=== PATIENT | male | born 1960 | race Caucasian/White ===

== ENCOUNTER 2017-07-08 06:03 | Inpatient (IN) | payer MEDICARE, MEDICAID ==
[2017-07-07 15:46] LABS: BASOPHILS % (AUTO) 0.4 % (0-1); EOSINOPHILS # (AUTO) 0.2 X10'3 (0-0.9); EOSINOPHILS % (AUTO) 2.8 % (0-6); LYMPHOCYTES # (AUTO) 0.9 X10'3 (1.1-4.8); LYMPHOCYTES % (AUTO) 11.4 % (21-51); MEAN CORPUSCULAR HEMOGLOBIN 23.8 PG (27.0-31.0); MEAN CORPUSCULAR HGB CONC 32.8 % (33.0-36.5); MEAN CORPUSCULAR VOLUME 72.7 FL (78-98); MEAN PLATELET VOLUME 7.3 FL (7.4-10.4); MONOCYTES # (AUTO) 0.7 X10'3 (0-0.9); MONOCYTES % (AUTO) 8.7 % (2-12); NEUTROPHILS # (AUTO) 5.8 X10'3 (1.8-7.7); NEUTROPHILS % (AUTO) 76.7 % (42-75); PRE OP HEMATOCRIT 39.7 % (42.0-52.0); PRE OP PLATELET COUNT 326 X10'3 (140-440); RED BLOOD COUNT 5.46 X10'6 (4.70-6.10); RED CELL DISTRIBUTION WIDTH 18.7 % (11.5-14.5)
[2017-07-07 15:48] LABS: CLARITY,URINE SLIGHTLY CLOUDY (Clear); COLOR,URINE YELLOW (Yellow); GLUCOSE, URINE NEGATIVE (Neg); KETONES,URINE TRACE mg/dl (Neg); LEUKOCYTE ESTERASE ,URINE NEGATIVE (Neg); NITRITES, URINE NEGATIVE (Neg); OCCULT BLOOD,URINE NEGATIVE (Neg); PROTEIN,URINE TRACE mg/dl (Neg)
[2017-07-07 15:51] LABS: UA COLLECTION TYPE VOIDED
[2017-07-07 15:57] LABS: PRE OP INR 1.4 INR; PRE OP PROTIME 14.3 SECONDS (9.0-12.0)
[2017-07-07 16:00] LABS: ALBUMIN 3.4 G/DL (3.4-5.0); ALBUMIN/GLOBULIN RATIO 0.8 (1.1-1.5); ALKALINE PHOSPHATASE 122 IU/L (46-116); BLOOD UREA NITROGEN 14 MG/DL (7-18); BUN/CREATININE RATIO 14.3 (5.4-32.0); CHLORIDE 102 MMOL/L (99-107); CREATININE 0.98 MG/DL (0.60-1.10); PRE OP ALT 35 U/L (30-65); PRE OP ANION GAP 5 (8-16); PRE OP AST 23 U/L (10-37); PRE OP BILIRUB, TOTAL 0.7 MG/DL (0.0-1.0); PRE OP GLUCOSE 194 MG/DL (70-104); PRE OP SODIUM 139 MMOL/L (135-145); TOTAL CARBON DIOXIDE 31.6 MMOL/L (24-32); TOTAL PROTEIN 7.9 G/DL (6.4-8.2); eGFR 79 ML/MIN
[2017-07-07 16:03] LABS: BACTERIA,URINE NONE SEEN /HPF (Neg); RBC,URINE 0-2 /HPF (0-2); SQUAMOUS EPITHELIAL CELL,UR FEW /LPF (FEW); WBC,URINE 0-4 /HPF (0-4)
[2017-07-08] VITALS (24 sets, daily range): BP systolic 81–145; BP diastolic 51–99
[~2017-07-08] VITALS: Ht 182.9 cm; Wt 189.6 kg
[~2017-07-08 06:03] MED LIST: ASPI-845 PO; BACL10TA PO; DICL100G15 TOP; DIGO250T77 PO; DOCUMENT DATE & TIME OF BETA-BLOCKER PO ONE; ENAL20TA75 PO; FURO40TA4 PO; GABA-532 PO; GLIP5TAB13 PO; INSU100C4 SQ; INSU100V12 SQ; LEVO50TA8 PO; LIRA0.6P2 SQ; OMEP20CA10 PO; POTA8TAB8 PO; ROSU20TA PO; SITA100T11 PO; SUCR1TAB PO; WARF-55 PO; ceFAZolin inj. 3,000 MG in normal saline 100ml IV soln 100 ML IV ONE; famotidine 20mg tablet PO ONE; ringers solution, lacted 1,000 ML IV SCH
[2017-07-08] MEDS ORDERED: LIDOcaine 1% (10mg/ml) 2ml vial ONE (06:29)
[2017-07-08] MEDS ORDERED: ceFAZolin 1000mg inj ONE ×2 (07:10→10:53)
[2017-07-08] MEDS ORDERED: BUPIVAcaine/PF 2.5 mg/ml (0.25%) 30ml vial ONE (07:11)
[2017-07-08] MEDS ORDERED: fentaNYL /PF 50mcg/ml 5ml ampule ONE (08:06)
[2017-07-08] MEDS ORDERED: midazolam 2 mg/2 ml injection ONE ×2 (08:06→10:31)
[2017-07-08] MEDS ORDERED: propofol inj 40 ML IV ONE (08:19)
[2017-07-08] MEDS ORDERED: LIDOcaine 1%/PF (10mg/ml) 5ml vial ONE (08:20)
[2017-07-08] MEDS ORDERED: rocuronium 10mg/ml inj IV ONE ×3 (08:22→13:07)
[2017-07-08] MEDS ORDERED: succinylcholine 20mg/ml inj IV ONE (08:22)
[2017-07-08] MEDS ORDERED: ringers solution, lacted 1,000 ML IV SCH (08:58)
[2017-07-08] MEDS ORDERED: HYDROmorphone inj. 0.5 MG/0.5 ML DISP.SYRIN IV PRN ×2 (09:00)
[2017-07-08] MEDS ORDERED: meperidine/PF 50mg/ml syringe IV PRN ×2 (09:00)
[2017-07-08] MEDS ORDERED: proCHLORperazine 10 MG/2 ml inj IV PRN (09:00)
[2017-07-08] MEDS ORDERED: fentaNYL/PF 50MCG/1 ML 2ML syringe IV PRN (09:00)
[2017-07-08] MEDS ORDERED: ondansetron/PF 4mg/2ml inj IV PRN (09:00)
[2017-07-08] MEDS ORDERED: sevoflurane 250ml liquid IH ONE (09:30)
[2017-07-08] MEDS ORDERED: ondansetron/PF 4mg/2ml inj ONE (10:40)
[2017-07-08] MEDS ORDERED: metoclopramide 5 mg/ml inj ONE (10:40)
[2017-07-08] MEDS ORDERED: epiNEPHrine 0.1mg/ml 10ml syringe ONE (11:00)
[2017-07-08] MEDS ORDERED: LIDOcaine 2% (20mg/ml) 5ml vial ONE (11:02)
[2017-07-08] MEDS ORDERED: ketorolac trometh. 30mg/ml inj. ONE (11:08)
[2017-07-08] MEDS ORDERED: dextrose 50%-water 50ml dispensing syringe IV PRN ×2 (11:30)
[2017-07-08] MEDS ORDERED: HYDROcodone/acetaminophen 10/325mg tab PO PRN (11:30)
[2017-07-08] MEDS ORDERED: glucagon, human recombinant 1mg kit SUBCUT PRN (11:30)
[2017-07-08] MEDS ORDERED: dextrose ORAL solution 15 GM/59 ML bottle PO PRN ×2 (11:30)
[2017-07-08] MEDS ORDERED: MESSAGE TO PHARMACY PO ONE (11:30)
[2017-07-08] MEDS: fentaNYL/PF 50MCG/1 ML 2ML syringe IV PRN ×2 (11:33→11:41)
[2017-07-08] MEDS ORDERED: insulin regular, human 10 units/0.1 ml syringe IV ONE (11:45)
[2017-07-08] MEDS ORDERED: acetaminophen 1,000mg/100ml IV 100 ML IV ONE (11:45)
[2017-07-08] MEDS ORDERED: insulin regular, human 10 units/0.1 ml syringe ONE (11:50)
[2017-07-08] MEDS ORDERED: HYDROmorphone/NS 1 mg/ml CADD 50 ML IV SCH (12:00)
[2017-07-08] MEDS ORDERED: CADD PCA waste documentation MC SCH (12:10)
[2017-07-08] MEDS: HYDROmorphone/NS 1 mg/ml CADD 50 ML IV SCH ×6 (12:27→23:00)
[2017-07-08] MEDS ORDERED: baclofen 10mg tablet PO PRN (13:00)
[2017-07-08] MEDS ORDERED: glycopyrrolate 0.2mg/ml inj ONE (13:02)
[2017-07-08] MEDS ORDERED: neostigmine methylsulfate 1 MG/ML 10ml vial ONE (13:02)
[2017-07-08] MEDS: furosemide 40mg tablet PO SCH ×2 (13:27→19:45)
[2017-07-08] MEDS: ondansetron/PF 4mg/2ml inj IV PRN (13:27)
[2017-07-08] MEDS: DICLOFENAC SODIUM TOP SCH ×2 (13:29→20:00)
[2017-07-08 13:31] LABS: INR 1.3 INR; PROTHROMBIN TIME 13.3 SECONDS (9.0-12.0)
[2017-07-08] MEDS ORDERED: ketorolac tromethamine 15mg/ml inj. IV ONE (15:50)
[2017-07-08] MEDS: Potassium Cl inj 20 MEQ in ringers solution, lacted 1,000 ML IV SCH (16:03)
[2017-07-08] MEDS: sucralfate 1 gm tablet PO SCH ×2 (17:58→23:56)
[2017-07-08] MEDS ORDERED: proMETHazine 25mg tablet PO PRN (18:10)
[2017-07-08] MEDS: insulin Lispro (HumaLOG) vial - multi-dose SQ SCH (19:42)
[2017-07-08] MEDS: gabapentin 300mg capsule PO SCH (19:45)
[2017-07-08] MEDS: potassium chloride 8mEq ER tablet PO SCH (19:45)
[2017-07-08] MEDS ORDERED: enoxaparin 50mg/0.5ml (from 3ml vial) syringe SUBCUT SCH (20:00)
[2017-07-08] MEDS ORDERED: glipizide 5mg tablet PO SCH (20:00)
[2017-07-08] MEDS: insulin glargine (Lantus) pen - multi-dose SQ SCH (21:07)
[2017-07-09] VITALS (23 sets, daily range): BP systolic 81–115; BP diastolic 45–78
[2017-07-09] MEDS: HYDROmorphone/NS 1 mg/ml CADD 50 ML IV SCH ×12 (01:00→23:00)
[2017-07-09] MEDS: DICLOFENAC SODIUM TOP SCH ×4 (02:00→20:00)
[2017-07-09] MEDS ORDERED: LORazepam 2 mg/ml vial IV ONE (02:05)
[2017-07-09] MEDS ORDERED: LORazepam 2 mg/ml vial ONE (02:07)
[2017-07-09] MEDS: Potassium Cl inj 20 MEQ in ringers solution, lacted 1,000 ML IV SCH ×2 (02:37→09:53)
[2017-07-09 05:37] LABS: BASOPHILS % (AUTO) 0.4 % (0-1); EOSINOPHILS # (AUTO) 0.3 X10'3 (0-0.9); LYMPHOCYTES # (AUTO) 0.4 X10'3 (1.1-4.8); MEAN CORPUSCULAR HEMOGLOBIN 23.9 PG (27.0-31.0); MEAN CORPUSCULAR HGB CONC 32.5 % (33.0-36.5); MEAN CORPUSCULAR VOLUME 73.4 FL (78-98); MONOCYTES # (AUTO) 0.6 X10'3 (0-0.9); MONOCYTES % (AUTO) 7.2 % (2-12); NEUTROPHILS # (AUTO) 7.2 X10'3 (1.8-7.7); NEUTROPHILS % (AUTO) 84.4 % (42-75); PLATELET COUNT 333 X10'3 (140-440); RED BLOOD COUNT 5.85 X10'6 (4.70-6.10); RED CELL DISTRIBUTION WIDTH 19.1 % (11.5-14.5); WHITE BLOOD COUNT 8.6 X10'3 (4.5-11.0)
[2017-07-09 05:46] LABS: INR 1.3 INR; PROTHROMBIN TIME 13.1 SECONDS (9.0-12.0)
[2017-07-09] MEDS ORDERED: pantoprazole 40mg Tablet.DR PO SCH (07:30)
[2017-07-09 07:59] LABS: ALBUMIN 2.9 G/DL (3.4-5.0); ANION GAP 8 (8-16); BLOOD UREA NITROGEN 25 MG/DL (7-18); BUN/CREATININE RATIO 21.9 (5.4-32.0); CALCIUM 8.1 MG/DL (8.5-10.1); CHLORIDE 104 MMOL/L (99-107); CREATININE 1.14 MG/DL (0.60-1.10); GLUCOSE 269 MG/DL (70-104); SODIUM 140 MMOL/L (135-145); TOTAL CARBON DIOXIDE 28.5 MMOL/L (24-32); eGFR 66 ML/MIN
[2017-07-09] MEDS ORDERED: digoxin 250mcg (0.25mg) tablet PO SCH (08:00)
[2017-07-09] MEDS ORDERED: INSULIN DETEMIR 160 UNIT SQ SCH (08:00)
[2017-07-09] MEDS: atorvastatin 20mg tablet PO SCH (08:46)
[2017-07-09] MEDS: aspirin 325mg tablet, delayed-release (Ecotrin) PO SCH (08:46)
[2017-07-09] MEDS: gabapentin 300mg capsule PO SCH ×2 (08:46→21:16)
[2017-07-09] MEDS: digoxin 125mcg (0.125mg) tablet PO SCH (08:47)
[2017-07-09] MEDS: sucralfate 1 gm tablet PO SCH ×2 (08:48→15:44)
[2017-07-09] MEDS: ondansetron/PF 4mg/2ml inj IV PRN ×2 (08:51→16:14)
[2017-07-09] MEDS: insulin Lispro (HumaLOG) vial - multi-dose SQ SCH ×3 (09:04→21:28)
[2017-07-09] MEDS: levoTHYROXINE 25mcg tablet PO SCH (09:05)
[2017-07-09] MEDS: lisinopril 2.5mg tablet PO SCH (09:06)
[2017-07-09] MEDS: potassium chloride 8mEq ER tablet PO SCH ×2 (09:51→20:00)
[2017-07-09] MEDS: furosemide 40mg tablet PO SCH ×3 (09:53→21:00)
[2017-07-09] MEDS: LIRAGLUTIDE 0.6 MG SQ SCH (09:53)
[2017-07-09 10:35] LABS: PHOSPHORUS 3.9 MG/DL (2.3-4.5)
[2017-07-09] MEDS: enoxaparin 30mg/0.3ml syringe SUBCUT SCH (14:27)
[2017-07-09] MEDS ORDERED: albumin (human) 25% 100 ML IV solution IV ONE (15:35)
[2017-07-09 16:10] LABS: MAGNESIUM 1.8 MG/DL (1.5-2.4); POTASSIUM 5.1 MMOL/L (3.5-5.1)
[2017-07-09] MEDS: warfarin 7.5mg tablet PO SCH (21:17)
[2017-07-09] MEDS: insulin glargine (Lantus) pen - multi-dose SQ SCH (21:25)
[2017-07-09] MEDS: normal saline 1000ml 1,000 ML IV SCH (22:20)
[2017-07-10] VITALS (23 sets, daily range): BP systolic 83–129; BP diastolic 51–85
[2017-07-10] MEDS: sucralfate 1 gm tablet PO SCH ×3 (00:53→14:59)
[2017-07-10] MEDS: HYDROmorphone/NS 1 mg/ml CADD 50 ML IV SCH ×12 (01:00→23:00)
[2017-07-10] MEDS: DICLOFENAC SODIUM TOP SCH ×4 (01:24→19:42)
[2017-07-10] MEDS: normal saline 1000ml 1,000 ML IV SCH ×4 (05:25→23:03)
[2017-07-10 05:35] LABS: BASOPHILS % (AUTO) 0.2 % (0-1); EOSINOPHILS # (AUTO) 0.1 X10'3 (0-0.9); EOSINOPHILS % (AUTO) 1.1 % (0-6); HEMATOCRIT 37.9 % (42.0-52.0); HEMOGLOBIN 12.4 g/dl (14.0-17.9); LYMPHOCYTES # (AUTO) 0.5 X10'3 (1.1-4.8); MEAN CORPUSCULAR HEMOGLOBIN 24.1 PG (27.0-31.0); MEAN CORPUSCULAR HGB CONC 32.9 % (33.0-36.5); MEAN CORPUSCULAR VOLUME 73.4 FL (78-98); MEAN PLATELET VOLUME 8.3 FL (7.4-10.4); MONOCYTES % (AUTO) 9.8 % (2-12); NEUTROPHILS # (AUTO) 8.8 X10'3 (1.8-7.7); NEUTROPHILS % (AUTO) 83.9 % (42-75); PLATELET COUNT 285 X10'3 (140-440); RED BLOOD COUNT 5.16 X10'6 (4.70-6.10); RED CELL DISTRIBUTION WIDTH 18.8 % (11.5-14.5); WHITE BLOOD COUNT 10.5 X10'3 (4.5-11.0)
[2017-07-10 05:51] LABS: INR 1.2 INR; PROTHROMBIN TIME 12.7 SECONDS (9.0-12.0)
[2017-07-10 06:37] LABS: ALANINE AMINOTRANSFERASE 21 U/L (12-78); ALBUMIN 2.8 G/DL (3.4-5.0); ALBUMIN/GLOBULIN RATIO 0.7 (1.1-1.5); ALKALINE PHOSPHATASE 77 IU/L (46-116); ANION GAP 8 (8-16); ASPARTATE AMINO TRANSFERASE 24 U/L (10-37); BILIRUBIN,TOTAL 2.8 MG/DL (0.1-1.0); BLOOD UREA NITROGEN 39 MG/DL (7-18); BUN/CREATININE RATIO 26.2 (5.4-32.0); CALCIUM 8.5 MG/DL (8.5-10.1); CHLORIDE 102 MMOL/L (99-107); CREATININE 1.49 MG/DL (0.60-1.10); GLUCOSE 267 MG/DL (70-104); POTASSIUM 4.5 MMOL/L (3.5-5.1); SODIUM 139 MMOL/L (135-145); TOTAL CARBON DIOXIDE 29.1 MMOL/L (24-32); TOTAL PROTEIN 6.8 G/DL (6.4-8.2); eGFR 48 ML/MIN
[2017-07-10] MEDS: digoxin 125mcg (0.125mg) tablet PO SCH (08:00)
[2017-07-10] MEDS: aspirin 325mg tablet, delayed-release (Ecotrin) PO SCH (08:00)
[2017-07-10] MEDS: furosemide 40mg tablet PO SCH ×3 (08:00→20:49)
[2017-07-10] MEDS: gabapentin 300mg capsule PO SCH ×2 (08:00→19:40)
[2017-07-10] MEDS: potassium chloride 8mEq ER tablet PO SCH ×2 (08:00→19:42)
[2017-07-10] MEDS: lisinopril 2.5mg tablet PO SCH (08:00)
[2017-07-10] MEDS: atorvastatin 20mg tablet PO SCH (08:00)
[2017-07-10] MEDS: LIRAGLUTIDE 0.6 MG SQ SCH (08:00)
[2017-07-10] MEDS: enoxaparin 30mg/0.3ml syringe SUBCUT SCH ×2 (09:38→19:41)
[2017-07-10] MEDS: insulin Lispro (HumaLOG) vial - multi-dose SQ SCH ×3 (09:40→21:01)
[2017-07-10] MEDS: levoTHYROXINE 25mcg tablet PO SCH (11:20)
[2017-07-10] MEDS: metoclopramide 5 mg/ml inj IV SCH ×2 (11:59→19:40)
[2017-07-10] MEDS: methylnaltrexone br 12mg/0.6ml inj***SubQ only SQ SCH (11:59)
[2017-07-10] MEDS: digoxin 250mcg/ml 2ml ampule IV SCH (12:00)
[2017-07-10] MEDS: levoTHYROXINE sod inj. 100mcg/5 ml vial IV SCH (12:06)
[2017-07-10] MEDS: acetaminophen 650mg rectal suppository RC PRN (13:25)
[2017-07-10] MEDS: piperacillin/tazo 3.375gm/50ml 50 ML IV SCH (18:49)
[2017-07-10] MEDS ORDERED: albumin (Human) 5% 250 ML IV solution IV STA (19:10)
[2017-07-10] MEDS: warfarin 7.5mg tablet PO SCH (20:49)
[2017-07-10] MEDS: insulin glargine (Lantus) pen - multi-dose SQ SCH (20:59)
[2017-07-10] MEDS: ondansetron/PF 4mg/2ml inj IV PRN (23:09)
[2017-07-11] VITALS (23 sets, daily range): BP systolic 85–140; BP diastolic 46–84
[2017-07-11] MEDS: piperacillin/tazo 3.375gm/50ml 50 ML IV SCH ×3 (00:07→15:19)
[2017-07-11] MEDS: sucralfate 1 gm tablet PO SCH ×3 (00:07→16:00)
[2017-07-11] MEDS: HYDROmorphone/NS 1 mg/ml CADD 50 ML IV SCH ×11 (01:00→23:00)
[2017-07-11] MEDS: DICLOFENAC SODIUM TOP SCH ×4 (01:23→20:00)
[2017-07-11] MEDS: metoclopramide 5 mg/ml inj IV SCH ×4 (01:32→20:00)
[2017-07-11] MEDS: normal saline 1000ml 1,000 ML IV SCH ×3 (05:18→22:00)
[2017-07-11 05:28] LABS: INR 1.2 INR
[2017-07-11 05:36] LABS: BASOPHILS % (AUTO) 0.1 % (0-1); EOSINOPHILS # (AUTO) 0.2 X10'3 (0-0.9); EOSINOPHILS % (AUTO) 1.7 % (0-6); HEMATOCRIT 28.6 % (42.0-52.0); HEMOGLOBIN 9.2 g/dl (14.0-17.9); LYMPHOCYTES # (AUTO) 0.4 X10'3 (1.1-4.8); LYMPHOCYTES % (AUTO) 3.4 % (21-51); MEAN CORPUSCULAR HGB CONC 32.4 % (33.0-36.5); MEAN CORPUSCULAR VOLUME 74.2 FL (78-98); MEAN PLATELET VOLUME 8.6 FL (7.4-10.4); MONOCYTES # (AUTO) 1.2 X10'3 (0-0.9); MONOCYTES % (AUTO) 10.1 % (2-12); NEUTROPHILS # (AUTO) 9.9 X10'3 (1.8-7.7); NEUTROPHILS % (AUTO) 84.7 % (42-75); PLATELET COUNT 248 X10'3 (140-440); RED BLOOD COUNT 3.85 X10'6 (4.70-6.10); RED CELL DISTRIBUTION WIDTH 19.2 % (11.5-14.5); WHITE BLOOD COUNT 11.6 X10'3 (4.5-11.0)
[2017-07-11 05:51] LABS: ALANINE AMINOTRANSFERASE 20 U/L (12-78); ALBUMIN 2.5 G/DL (3.4-5.0); ALKALINE PHOSPHATASE 78 IU/L (46-116); ANION GAP 9 (8-16); ASPARTATE AMINO TRANSFERASE 36 U/L (10-37); BILIRUBIN,TOTAL 4.3 MG/DL (0.1-1.0); BLOOD UREA NITROGEN 50 MG/DL (7-18); BUN/CREATININE RATIO 30.9 (5.4-32.0); CALCIUM 8.2 MG/DL (8.5-10.1); CHLORIDE 104 MMOL/L (99-107); CREATININE 1.62 MG/DL (0.60-1.10); GLUCOSE 317 MG/DL (70-104); MAGNESIUM 2.1 MG/DL (1.5-2.4); SODIUM 142 MMOL/L (135-145); TOTAL CARBON DIOXIDE 29.2 MMOL/L (24-32); eGFR 44 ML/MIN
[2017-07-11 05:54] LABS: ALBUMIN/GLOBULIN RATIO 0.6 (1.1-1.5); POTASSIUM 4.6 MMOL/L (3.5-5.1); TOTAL PROTEIN 6.4 G/DL (6.4-8.2)
[2017-07-11 05:56] LABS: ANISOCYTOSIS 2+; ELLIPTOCYTES FEW; HYPOCHROMASIA 1+; PLATELET ESTIMATE NORMAL; POLYCHROMASIA FEW; TOTAL CELLS COUNTED 100
[2017-07-11] MEDS ORDERED: amiodarone 150mg/dext, iso-os 100 ML IV ONE (06:45)
[2017-07-11] MEDS: amiodarone/D5 360MG/200ML BAG 200 ML IV SCH ×3 (06:58→18:52)
[2017-07-11 07:11] LABS: ABG BASE EXCESS -0.2 mmol/L (-2.0-3.0); ABG HCO3 25.3 mmol/L (22.0-26.0); ABG OXYGEN SATURATION 94.4 % (95-98); ABG PCO2 (T) 47.6 mmHg (35.0-48.0); ABG PH (T) 7.349 (7.350-7.450); ABG PO2 (T) 83.4 mmHg (83-108); ALLEN'S TEST Positive; FCOHb 1.5 % (0.5-1.5); FLOW 4 L/min; FMetHb 0.2 % (0.3-1.12); FO2Hb 92.8 % (94-100); PATIENT TEMPERATURE 38.5; TOTAL HEMOGLOBIN 10.2 G/dl (14.0-18.0)
[2017-07-11] MEDS: potassium chloride 8mEq ER tablet PO SCH ×2 (08:00→20:00)
[2017-07-11] MEDS: lisinopril 2.5mg tablet PO SCH (08:00)
[2017-07-11] MEDS: atorvastatin 20mg tablet PO SCH (08:00)
[2017-07-11] MEDS: LIRAGLUTIDE 0.6 MG SQ SCH (08:00)
[2017-07-11] MEDS: enoxaparin 30mg/0.3ml syringe SUBCUT SCH ×2 (08:00→22:23)
[2017-07-11] MEDS: gabapentin 300mg capsule PO SCH ×2 (08:00→20:00)
[2017-07-11] MEDS: aspirin 325mg tablet, delayed-release (Ecotrin) PO SCH (08:00)
[2017-07-11] MEDS: furosemide 40mg tablet PO SCH (08:00)
[2017-07-11] MEDS: levoTHYROXINE sod inj. 100mcg/5 ml vial IV SCH (08:39)
[2017-07-11] MEDS: digoxin 250mcg/ml 2ml ampule IV SCH (08:39)
[2017-07-11] MEDS: insulin Lispro (HumaLOG) vial - multi-dose SQ SCH ×2 (08:58→14:52)
[2017-07-11] MEDS: acetaminophen 650mg rectal suppository RC PRN (10:08)
[2017-07-11] MEDS ORDERED: LIDOcaine 1% (10mg/ml) 2ml vial ONE (15:29)
[2017-07-11] MEDS ORDERED: clindamycin phosphate 150mg/ml inj. ONE (15:29)
[2017-07-11] MEDS ORDERED: gentamicin 40 MG/1 ML inj ONE (15:29)
[2017-07-11] MEDS ORDERED: desflurane 240ml liquid inh. IH ONE (15:35)
[2017-07-11] MEDS ORDERED: ePHEDrine 50MG/ML INJ. ONE ×2 (15:35→17:49)
[2017-07-11] MEDS ORDERED: adenosine 3mg/ml 2ml vial IV ONE (15:35)
[2017-07-11] MEDS ORDERED: insulin Lispro (HumaLOG) vial - multi-dose SQ PRN (15:45)
[2017-07-11] MEDS ORDERED: dextrose 50%-water 50ml dispensing syringe IV PRN (15:45)
[2017-07-11] MEDS: insulin regular, human 100 UNITS in normal saline 100ml IV soln 99 ML IV SCH ×4 (16:05→23:11)
[2017-07-11 16:56] LABS: ABG BASE EXCESS -5.9 mmol/L (-2.0-3.0); ABG HCO3 22.2 mmol/L (22.0-26.0); ABG OXYGEN SATURATION 86.6 % (95-98); ABG PCO2 (T) 58.3 mmHg (35.0-48.0); ABG PH (T) 7.199 (7.350-7.450); FMetHb 0.2 % (0.3-1.12); FO2Hb 85.6 % (94-100); TOTAL HEMOGLOBIN 9.3 G/dl (14.0-18.0)
[2017-07-11] MEDS ORDERED: EPICAL 5MG & 1000MG PER 250ML INFUSION IV PRN ×3 (17:00)
[2017-07-11 17:03] LABS: BASOPHILS % (AUTO) 0.1 % (0-1); EOSINOPHILS # (AUTO) 0.5 X10'3 (0-0.9); EOSINOPHILS % (AUTO) 2.1 % (0-6); HEMATOCRIT 26.9 % (42.0-52.0); HEMOGLOBIN 8.5 g/dl (14.0-17.9); LYMPHOCYTES # (AUTO) 2.7 X10'3 (1.1-4.8); LYMPHOCYTES % (AUTO) 11.7 % (21-51); MEAN CORPUSCULAR HEMOGLOBIN 23.7 PG (27.0-31.0); MEAN CORPUSCULAR HGB CONC 31.7 % (33.0-36.5); MEAN CORPUSCULAR VOLUME 74.9 FL (78-98); MEAN PLATELET VOLUME 8.9 FL (7.4-10.4); MONOCYTES # (AUTO) 2.8 X10'3 (0-0.9); MONOCYTES % (AUTO) 12.3 % (2-12); NEUTROPHILS # (AUTO) 16.9 X10'3 (1.8-7.7); NEUTROPHILS % (AUTO) 73.8 % (42-75); PLATELET COUNT 319 X10'3 (140-440); RED BLOOD COUNT 3.59 X10'6 (4.70-6.10); RED CELL DISTRIBUTION WIDTH 19.1 % (11.5-14.5); WHITE BLOOD COUNT 22.9 X10'3 (4.5-11.0)
[2017-07-11 17:15] LABS: INR 1.2 INR; PARTIAL THROMBOPLASTIN TIME 35 SECONDS (22-32); PROTHROMBIN TIME 12.1 SECONDS (9.0-12.0)
[2017-07-11 17:20] LABS: ANISOCYTOSIS 2+; NUCLEATED RED BLOOD CELLS 1 /100WBC (0-0); PLATELET ESTIMATE NORMAL; POLYCHROMASIA 1+; TOTAL CELLS COUNTED 100; TOXIC GRANULATION 1+
[2017-07-11 17:21] LABS: ELLIPTOCYTES 1+; HYPOCHROMASIA 1+; MICROCYTOSIS 1+
[2017-07-11 17:23] LABS: ALANINE AMINOTRANSFERASE 25 U/L (12-78); ALBUMIN 2.3 G/DL (3.4-5.0); ALBUMIN/GLOBULIN RATIO 0.6 (1.1-1.5); ALKALINE PHOSPHATASE 77 IU/L (46-116); ANION GAP 12 (8-16); ASPARTATE AMINO TRANSFERASE 50 U/L (10-37); BILIRUBIN,TOTAL 3.7 MG/DL (0.1-1.0); BLOOD UREA NITROGEN 58 MG/DL (7-18); BUN/CREATININE RATIO 24.7 (5.4-32.0); CALCIUM 8.7 MG/DL (8.5-10.1); CHLORIDE 104 MMOL/L (99-107); CREATININE 2.35 MG/DL (0.60-1.10); GLUCOSE 405 MG/DL (70-104); MAGNESIUM 3.1 MG/DL (1.5-2.4); SODIUM 142 MMOL/L (135-145); TOTAL CARBON DIOXIDE 26.5 MMOL/L (24-32); TOTAL PROTEIN 6.2 G/DL (6.4-8.2); TROPONIN I < 0.04 NG/ML (0.0-0.05); eGFR 29 ML/MIN
[2017-07-11 17:34] LABS: POTASSIUM 6.1 MMOL/L (3.5-5.1)
[2017-07-11 17:35] LABS: ABG HCO3 23.4 mmol/L (22.0-26.0); ABG OXYGEN SATURATION 98.8 % (95-98); ABG PCO2 (T) 39.7 mmHg (35.0-48.0); ABG PH (T) 7.394 (7.350-7.450); ABG PO2 (T) 163.1 mmHg (83-108); FCOHb 1.4 % (0.5-1.5); FMetHb 0.2 % (0.3-1.12); FO2Hb 97.2 % (94-100); PATIENT TEMPERATURE 38.6; TOTAL HEMOGLOBIN 8.1 G/dl (14.0-18.0)
[2017-07-11 17:36] LABS: LACTIC SEPSIS 6.7 MMOL/L (0.4-2.0)
[2017-07-11] MEDS ORDERED: midazolam 2 mg/2 ml injection IV PRN (17:40)
[2017-07-11] MEDS ORDERED: fentaNYL/PF 50MCG/1 ML 2ML syringe IV PRN ×2 (17:40→18:15)
[2017-07-11] MEDS ORDERED: rocuronium 10mg/ml inj IV ONE ×2 (17:48)
[2017-07-11] MEDS ORDERED: epiNEPHrine 0.1mg/ml 10ml syringe ONE (17:49)
[2017-07-11] MEDS ORDERED: etomidate 2mg/ml inj. ONE (17:49)
[2017-07-11] MEDS ORDERED: sodium bicarbonate 1 MEQ/1 ml inj ONE (17:49)
[2017-07-11] MEDS ORDERED: midazolam 2 mg/2 ml injection IV ONE (18:15)
[2017-07-11] MEDS: vasopressin inj. 60 UNIT in normal saline 100ml IV soln 97 ML IV SCH (19:30)
[2017-07-11 20:04] LABS: INR 1.2 INR; PARTIAL THROMBOPLASTIN TIME 36 SECONDS (22-32); PROTHROMBIN TIME 12.1 SECONDS (9.0-12.0)
[2017-07-11 20:06] LABS: ALANINE AMINOTRANSFERASE 26 U/L (12-78); ALBUMIN 2.2 G/DL (3.4-5.0); ALBUMIN/GLOBULIN RATIO 0.6 (1.1-1.5); ALKALINE PHOSPHATASE 72 IU/L (46-116); ANION GAP 7 (8-16); ASPARTATE AMINO TRANSFERASE 56 U/L (10-37); BILIRUBIN,TOTAL 4.2 MG/DL (0.1-1.0); BLOOD UREA NITROGEN 63 MG/DL (7-18); BUN/CREATININE RATIO 27.5 (5.4-32.0); CALCIUM 8.1 MG/DL (8.5-10.1); CHLORIDE 104 MMOL/L (99-107); CREATININE 2.29 MG/DL (0.60-1.10); GLUCOSE 331 MG/DL (70-104); MAGNESIUM 2.3 MG/DL (1.5-2.4); PHOSPHORUS 3.6 MG/DL (2.3-4.5); POTASSIUM 4.7 MMOL/L (3.5-5.1); SODIUM 138 MMOL/L (135-145); TOTAL CARBON DIOXIDE 27.5 MMOL/L (24-32); TOTAL PROTEIN 5.8 G/DL (6.4-8.2); eGFR 29 ML/MIN
[2017-07-11 21:00] LABS: ABG BASE EXCESS -0.5 mmol/L (-2.0-3.0); ABG HCO3 25.3 mmol/L (22.0-26.0); ABG OXYGEN SATURATION 98.6 % (95-98); ABG PCO2 (T) 50.9 mmHg (35.0-48.0); ABG PH (T) 7.324 (7.350-7.450); ABG PO2 (T) 171.1 mmHg (83-108); FCOHb 0.3 % (0.5-1.5); FMetHb 0.1 % (0.3-1.12); FO2Hb 98.2 % (94-100); PATIENT TEMPERATURE 39.1; PEEP 5 cm H2O; RESPIRATORY RATE 14 b/min; TIDAL VOLUME 600 mL
[2017-07-11] MEDS: insulin glargine (Lantus) pen - multi-dose SQ SCH (21:00)
[2017-07-11 21:11] LABS: OXYGEN SATURATION (MIXED VEN) 68.4 % (60-80); PO2 MIXED VENOUS (TEMP COR) 43.4 mmHg (35-46)
[2017-07-11 21:44] LABS: BASOPHILS % (AUTO) 0 % (0-1); EOSINOPHILS # (AUTO) 0.1 X10'3 (0-0.9); EOSINOPHILS % (AUTO) 0.4 % (0-6); HEMATOCRIT 26.6 % (42.0-52.0); HEMOGLOBIN 8.7 g/dl (14.0-17.9); LYMPHOCYTES # (AUTO) 0.3 X10'3 (1.1-4.8); MEAN CORPUSCULAR HEMOGLOBIN 24.5 PG (27.0-31.0); MEAN CORPUSCULAR HGB CONC 32.6 % (33.0-36.5); MONOCYTES # (AUTO) 1.7 X10'3 (0-0.9); MONOCYTES % (AUTO) 10.4 % (2-12); NEUTROPHILS # (AUTO) 13.9 X10'3 (1.8-7.7); NEUTROPHILS % (AUTO) 87.2 % (42-75); PLATELET COUNT 311 X10'3 (140-440); RED BLOOD COUNT 3.55 X10'6 (4.70-6.10); RED CELL DISTRIBUTION WIDTH 19.2 % (11.5-14.5)
[2017-07-11] MEDS: NORMAL SALINE IV SCH (22:21)
[2017-07-11] MEDS: NOREPINEPHRINE IV SCH (22:21)
[2017-07-11] MEDS: warfarin 7.5mg tablet PO SCH (22:28)
[2017-07-11 22:46] LABS: BASOPHILS % (AUTO) 0 % (0-1); EOSINOPHILS # (AUTO) 0.2 X10'3 (0-0.9); EOSINOPHILS % (AUTO) 1.1 % (0-6); HEMATOCRIT 28.8 % (42.0-52.0); HEMOGLOBIN 9.4 g/dl (14.0-17.9); LYMPHOCYTES # (AUTO) 0.4 X10'3 (1.1-4.8); MEAN CORPUSCULAR HEMOGLOBIN 24.8 PG (27.0-31.0); MEAN CORPUSCULAR HGB CONC 32.6 % (33.0-36.5); MEAN CORPUSCULAR VOLUME 76.1 FL (78-98); MEAN PLATELET VOLUME 8.7 FL (7.4-10.4); MONOCYTES # (AUTO) 1.3 X10'3 (0-0.9); MONOCYTES % (AUTO) 8.5 % (2-12); NEUTROPHILS # (AUTO) 12.9 X10'3 (1.8-7.7); NEUTROPHILS % (AUTO) 87.4 % (42-75); PLATELET COUNT 314 X10'3 (140-440); RED BLOOD COUNT 3.78 X10'6 (4.70-6.10); RED CELL DISTRIBUTION WIDTH 19.7 % (11.5-14.5); WHITE BLOOD COUNT 14.7 X10'3 (4.5-11.0)
[2017-07-12] VITALS (23 sets, daily range): BP systolic 95–129; BP diastolic 38–51
[2017-07-12] MEDS ORDERED: pantoprazole 40 MG vial IV ONE (00:15)
[2017-07-12] MEDS ORDERED: acetaminophen 1,000mg/100ml IV 100 ML IV SCH (00:35)
[2017-07-12] MEDS: piperacillin/tazo 3.375gm/50ml 50 ML IV SCH ×3 (00:41→16:15)
[2017-07-12] MEDS: sucralfate 1gm/10ml UD suspension PO SCH ×3 (00:41→16:00)
[2017-07-12] MEDS: HYDROmorphone/NS 1 mg/ml CADD 50 ML IV SCH ×5 (01:00→07:00)
[2017-07-12] MEDS: insulin regular, human 100 UNITS in normal saline 100ml IV soln 99 ML IV SCH ×22 (01:12→21:09)
[2017-07-12] MEDS: metoclopramide 5 mg/ml inj IV SCH ×4 (02:00→20:35)
[2017-07-12] MEDS: DICLOFENAC SODIUM TOP SCH ×4 (02:00→20:00)
[2017-07-12] MEDS: normal saline 1000ml 1,000 ML IV SCH ×4 (02:35→21:52)
[2017-07-12 03:56] LABS: ABG BASE EXCESS 2.6 mmol/L (-2.0-3.0); ABG OXYGEN SATURATION 96.2 % (95-98); ABG PCO2 (T) 44.7 mmHg (35.0-48.0); ABG PH (T) 7.407 (7.350-7.450); ABG PO2 (T) 95.2 mmHg (83-108); FCOHb 0.3 % (0.5-1.5); FMetHb 0.1 % (0.3-1.12); FO2Hb 95.8 % (94-100); PEEP 5 cm H2O; RESPIRATORY RATE 18 b/min; TIDAL VOLUME 600 mL; TOTAL HEMOGLOBIN 9.9 G/dl (14.0-18.0)
[2017-07-12 04:20] LABS: BASOPHILS % (AUTO) 0 % (0-1); EOSINOPHILS # (AUTO) 0.6 X10'3 (0-0.9); EOSINOPHILS % (AUTO) 4.1 % (0-6); HEMATOCRIT 27.7 % (42.0-52.0); HEMOGLOBIN 9.1 g/dl (14.0-17.9); LYMPHOCYTES # (AUTO) 0.5 X10'3 (1.1-4.8); LYMPHOCYTES % (AUTO) 3.5 % (21-51); MEAN CORPUSCULAR HEMOGLOBIN 24.7 PG (27.0-31.0); MEAN CORPUSCULAR HGB CONC 32.7 % (33.0-36.5); MEAN CORPUSCULAR VOLUME 75.6 FL (78-98); MEAN PLATELET VOLUME 7.9 FL (7.4-10.4); MONOCYTES # (AUTO) 1.4 X10'3 (0-0.9); MONOCYTES % (AUTO) 9.3 % (2-12); NEUTROPHILS # (AUTO) 12.6 X10'3 (1.8-7.7); NEUTROPHILS % (AUTO) 83.1 % (42-75); PLATELET COUNT 277 X10'3 (140-440); RED BLOOD COUNT 3.67 X10'6 (4.70-6.10); RED CELL DISTRIBUTION WIDTH 19.7 % (11.5-14.5); WHITE BLOOD COUNT 15.2 X10'3 (4.5-11.0)
[2017-07-12 04:28] LABS: INR 1.2 INR; PROTHROMBIN TIME 11.9 SECONDS (9.0-12.0)
[2017-07-12 04:34] LABS: ALANINE AMINOTRANSFERASE 27 U/L (12-78); ALKALINE PHOSPHATASE 71 IU/L (46-116); ANION GAP 9 (8-16); ASPARTATE AMINO TRANSFERASE 69 U/L (10-37); BILIRUBIN,TOTAL 5.1 MG/DL (0.1-1.0); BLOOD UREA NITROGEN 67 MG/DL (7-18); BUN/CREATININE RATIO 24.5 (5.4-32.0); CALCIUM 7.9 MG/DL (8.5-10.1); CHLORIDE 109 MMOL/L (99-107); CREATININE 2.73 MG/DL (0.60-1.10); GLUCOSE 195 MG/DL (70-104); POTASSIUM 4.1 MMOL/L (3.5-5.1); SODIUM 146 MMOL/L (135-145); TOTAL CARBON DIOXIDE 28.2 MMOL/L (24-32); eGFR 24 ML/MIN
[2017-07-12 04:38] LABS: ALBUMIN/GLOBULIN RATIO 0.5 (1.1-1.5); TOTAL PROTEIN 5.8 G/DL (6.4-8.2)
[2017-07-12] MEDS: amiodarone/D5 360MG/200ML BAG 200 ML IV SCH ×4 (05:00→16:50)
[2017-07-12 05:20] LABS: ANISOCYTOSIS 2+; PLATELET ESTIMATE NORMAL; TOTAL CELLS COUNTED 100
[2017-07-12 05:21] LABS: ELLIPTOCYTES FEW; HYPOCHROMASIA 1+; MICROCYTOSIS 1+; POLYCHROMASIA 1+
[2017-07-12 08:00] LABS: MAGNESIUM 2.4 MG/DL (1.5-2.4); PHOSPHORUS 1.6 MG/DL (2.3-4.5)
[2017-07-12] MEDS: potassium chloride 8mEq ER tablet PO SCH ×2 (08:00→20:00)
[2017-07-12] MEDS: K and/or MAG REPLACEMENT MC SCH (08:00)
[2017-07-12] MEDS: LIRAGLUTIDE 0.6 MG SQ SCH (08:00)
[2017-07-12] MEDS: atorvastatin 20mg tablet PO SCH (08:00)
[2017-07-12] MEDS: lisinopril 2.5mg tablet PO SCH (08:00)
[2017-07-12] MEDS: aspirin 325mg tablet, delayed-release (Ecotrin) PO SCH (08:00)
[2017-07-12] MEDS: gabapentin 300mg capsule PO SCH ×2 (08:00→20:00)
[2017-07-12] MEDS: methylnaltrexone br 12mg/0.6ml inj***SubQ only SQ SCH (08:21)
[2017-07-12] MEDS ORDERED: sodium phosphate inj. 30 MMOL in dextrose 5%-water 250 ML IV PRN ×2 (08:22→08:45)
[2017-07-12] MEDS: pantoprazole 40 MG vial IV SCH (08:22)
[2017-07-12] MEDS ORDERED: sodium phosphate inj. 15 MMOL in dextrose 5%-water 150 ML IV PRN ×2 (08:22→08:50)
[2017-07-12] MEDS ORDERED: magnesium 4gm in 100ml NS 100 ML IV PRN (08:25)
[2017-07-12] MEDS ORDERED: magnesium 2GM in 50ml NS 50 ML IV PRN (08:25)
[2017-07-12] MEDS: digoxin 250mcg/ml 2ml ampule IV SCH (08:25)
[2017-07-12] MEDS ORDERED: potassium Cl 40MEQ/250ML bag 250 ML IV PRN (08:25)
[2017-07-12] MEDS: levoTHYROXINE sod inj. 100mcg/5 ml vial IV SCH (08:28)
[2017-07-12] MEDS: NORMAL SALINE IV SCH ×2 (08:39→18:20)
[2017-07-12] MEDS: NOREPINEPHRINE IV SCH ×2 (08:39→18:20)
[2017-07-12] MEDS: enoxaparin 30mg/0.3ml syringe SUBCUT SCH ×2 (08:45→20:35)
[2017-07-12] MEDS: FENTANYL-0.9 % NACL/PF 100 ML IV PRN (10:07)
[2017-07-12 15:26] LABS: HEMATOCRIT 27.8 % (42.0-52.0); MEAN CORPUSCULAR HEMOGLOBIN 24.7 PG (27.0-31.0); MEAN CORPUSCULAR HGB CONC 32.4 % (33.0-36.5); MEAN CORPUSCULAR VOLUME 76.1 FL (78-98); MEAN PLATELET VOLUME 8.2 FL (7.4-10.4); PLATELET COUNT 260 X10'3 (140-440); RED BLOOD COUNT 3.65 X10'6 (4.70-6.10); RED CELL DISTRIBUTION WIDTH 20.5 % (11.5-14.5); WHITE BLOOD COUNT 21.2 X10'3 (4.5-11.0)
[2017-07-12] MEDS: fluconazole-Diflucan 200mg/NS 100 ML IV SCH (17:33)
[2017-07-12] MEDS: midazolam 100mg in NS 100ml 100 ML IV PRN (17:52)
[2017-07-12] MEDS: vasopressin inj. 60 UNIT in normal saline 100ml IV soln 97 ML IV SCH (18:19)
[2017-07-12] MEDS ORDERED: mineral oil/petrolatum ophthal oint EACHEYE SCH (20:00)
[2017-07-12] MEDS: mineral oil/petrolatum ophthal oint EACHEYE SCH (20:34)
[2017-07-12] MEDS: insulin glargine (Lantus) pen - multi-dose SQ SCH (20:38)
[2017-07-12] MEDS ORDERED: insulin R INFUSION 1 ML IV ONE (21:09)
[2017-07-12] MEDS ORDERED: NORepinephrine 1 mg/ml inj IV ONE ×2 (21:11→21:12)
[2017-07-12] MEDS: acetaminophen 650mg rectal suppository RC PRN (21:45)
[2017-07-12] MEDS ORDERED: acetaminophen 1,000mg/100ml IV 100 ML IV PRN (22:25)
[2017-07-13] VITALS (26 sets, daily range): BP systolic 105–138; BP diastolic 40–67
[2017-07-13] MEDS: sucralfate 1gm/10ml UD suspension PO SCH
[2017-07-13] MEDS: insulin regular, human 100 UNITS in normal saline 100ml IV soln 99 ML IV SCH ×12 (00:06→23:27)
[2017-07-13] MEDS: piperacillin/tazo 3.375gm/50ml 50 ML IV SCH ×4 (00:07→23:27)
[2017-07-13] MEDS ORDERED: albumin (human) 25% 100 ML IV solution IV ONE (00:45)
[2017-07-13 01:06] LABS: OXYGEN SATURATION (MIXED VEN) 63.5 % (60-80); PO2 MIXED VENOUS (TEMP COR) 36.2 mmHg (35-46)
[2017-07-13] MEDS: NOREPINEPHRINE IV SCH ×2 (01:43→08:53)
[2017-07-13] MEDS: NORMAL SALINE IV SCH ×2 (01:43→08:53)
[2017-07-13] MEDS: DICLOFENAC SODIUM TOP SCH ×3 (02:00→14:00)
[2017-07-13] MEDS: mineral oil/petrolatum ophthal oint EACHEYE SCH ×4 (02:08→19:35)
[2017-07-13] MEDS: metoclopramide 5 mg/ml inj IV SCH ×4 (02:08→19:38)
[2017-07-13 02:36] LABS: BASOPHILS % (AUTO) 0 % (0-1); EOSINOPHILS # (AUTO) 0.8 X10'3 (0-0.9); HEMATOCRIT 23.8 % (42.0-52.0); HEMOGLOBIN 7.9 g/dl (14.0-17.9); LYMPHOCYTES # (AUTO) 0.5 X10'3 (1.1-4.8); LYMPHOCYTES % (AUTO) 3.1 % (21-51); MEAN CORPUSCULAR HGB CONC 33.3 % (33.0-36.5); MEAN PLATELET VOLUME 8.1 FL (7.4-10.4); MONOCYTES # (AUTO) 1.3 X10'3 (0-0.9); MONOCYTES % (AUTO) 8.1 % (2-12); NEUTROPHILS # (AUTO) 13.2 X10'3 (1.8-7.7); NEUTROPHILS % (AUTO) 83.8 % (42-75); PLATELET COUNT 240 X10'3 (140-440); RED BLOOD COUNT 3.17 X10'6 (4.70-6.10); RED CELL DISTRIBUTION WIDTH 20.2 % (11.5-14.5); WHITE BLOOD COUNT 15.7 X10'3 (4.5-11.0)
[2017-07-13 02:47] LABS: INR 1.3 INR; PROTHROMBIN TIME 12.9 SECONDS (9.0-12.0)
[2017-07-13 02:51] LABS: ALANINE AMINOTRANSFERASE 22 U/L (12-78); ALBUMIN 2.3 G/DL (3.4-5.0); ALBUMIN/GLOBULIN RATIO 0.6 (1.1-1.5); ALKALINE PHOSPHATASE 74 IU/L (46-116); ANION GAP 10 (8-16); ASPARTATE AMINO TRANSFERASE 59 U/L (10-37); BLOOD UREA NITROGEN 69 MG/DL (7-18); CALCIUM 7.4 MG/DL (8.5-10.1); CHLORIDE 112 MMOL/L (99-107); CREATININE 2.56 MG/DL (0.60-1.10); GLUCOSE 114 MG/DL (70-104); MAGNESIUM 2.2 MG/DL (1.5-2.4); PHOSPHORUS 2.6 MG/DL (2.3-4.5); POTASSIUM 3.7 MMOL/L (3.5-5.1); SODIUM 149 MMOL/L (135-145); TOTAL CARBON DIOXIDE 27.4 MMOL/L (24-32); eGFR 26 ML/MIN
[2017-07-13] MEDS: FENTANYL-0.9 % NACL/PF 100 ML IV PRN ×2 (03:48→17:45)
[2017-07-13 03:51] LABS: ANISOCYTOSIS 2+; NUCLEATED RED BLOOD CELLS 1 /100WBC (0-0); PLATELET ESTIMATE NORMAL; POLYCHROMASIA FEW; TOTAL CELLS COUNTED 100
[2017-07-13 03:52] LABS: ELLIPTOCYTES FEW; TOXIC GRANULATION 1+
[2017-07-13 04:01] LABS: ABG BASE EXCESS 0.3 mmol/L (-2.0-3.0); ABG HCO3 25.1 mmol/L (22.0-26.0); ABG OXYGEN SATURATION 93.3 % (95-98); ABG PCO2 (T) 42.1 mmHg (35.0-48.0); ABG PH (T) 7.395 (7.350-7.450); ABG PO2 (T) 73.6 mmHg (83-108); FCOHb 0.3 % (0.5-1.5); FMetHb 0.1 % (0.3-1.12); FO2Hb 92.9 % (94-100); MINUTE VOLUME 12 L/min; PATIENT TEMPERATURE 37.5; PEEP 5 cm H2O; RESPIRATORY RATE 18 b/min; RESPIRATORY RATE (OBSERVED) 18 b/min; TIDAL VOLUME 600 mL; TOTAL HEMOGLOBIN 8.5 G/dl (14.0-18.0)
[2017-07-13] MEDS: amiodarone/D5 360MG/200ML BAG 200 ML IV SCH ×2 (04:11→07:16)
[2017-07-13] MEDS: normal saline 1000ml 1,000 ML IV SCH ×2 (05:15→06:43)
[2017-07-13] MEDS: atorvastatin 20mg tablet PO SCH (06:25)
[2017-07-13] MEDS: aspirin 325mg tablet, delayed-release (Ecotrin) PO SCH (06:25)
[2017-07-13] MEDS: lisinopril 2.5mg tablet PO SCH (06:26)
[2017-07-13] MEDS: LIRAGLUTIDE 0.6 MG SQ SCH (06:26)
[2017-07-13] MEDS: levoTHYROXINE sod inj. 100mcg/5 ml vial IV SCH (07:31)
[2017-07-13] MEDS: enoxaparin 30mg/0.3ml syringe SUBCUT SCH ×2 (07:32→19:36)
[2017-07-13] MEDS: digoxin 250mcg/ml 2ml ampule IV SCH (07:34)
[2017-07-13] MEDS: pantoprazole 40 MG vial IV SCH (07:34)
[2017-07-13] MEDS: K and/or MAG REPLACEMENT MC SCH (08:00)
[2017-07-13 08:56] LABS: HEMATOCRIT 24.8 % (42.0-52.0); HEMOGLOBIN 8.3 g/dl (14.0-17.9); MEAN CORPUSCULAR HEMOGLOBIN 25.4 PG (27.0-31.0); MEAN CORPUSCULAR HGB CONC 33.6 % (33.0-36.5); MEAN CORPUSCULAR VOLUME 75.8 FL (78-98); MEAN PLATELET VOLUME 8.3 FL (7.4-10.4); PLATELET COUNT 229 X10'3 (140-440); RED BLOOD COUNT 3.27 X10'6 (4.70-6.10); RED CELL DISTRIBUTION WIDTH 20.5 % (11.5-14.5); WHITE BLOOD COUNT 16.1 X10'3 (4.5-11.0)
[2017-07-13] MEDS: fluconazole-Diflucan 200mg/NS 100 ML IV SCH (09:11)
[2017-07-13] MEDS: DOBUTamine-DoBUTrex 500mg/D5W 250 ML IV SCH (10:01)
[2017-07-13] MEDS: midazolam 100mg in NS 100ml 100 ML IV PRN (17:37)
[2017-07-13] MEDS ORDERED: Dextrose 10%-water IV solution 1,000 ML IV PRN (18:00)
[2017-07-13] MEDS: [UNRECOGNIZED DRUG - REMARK] IV SCH ×4 (19:43)
[2017-07-13] MEDS: insulin glargine (Lantus) pen - multi-dose SQ SCH (21:18)
[2017-07-14] VITALS (25 sets, daily range): BP systolic 111–134; BP diastolic 49–58
[2017-07-14] MEDS: NOREPINEPHRINE IV SCH (01:29)
[2017-07-14] MEDS: NORMAL SALINE IV SCH (01:29)
[2017-07-14] MEDS: DOBUTamine-DoBUTrex 500mg/D5W 250 ML IV SCH ×3 (01:30→18:51)
[2017-07-14] MEDS: metoclopramide 5 mg/ml inj IV SCH ×4 (01:30→19:58)
[2017-07-14] MEDS: mineral oil/petrolatum ophthal oint EACHEYE SCH ×4 (01:30→19:58)
[2017-07-14] MEDS: insulin regular, human 100 UNITS in normal saline 100ml IV soln 99 ML IV SCH ×22 (01:32→23:11)
[2017-07-14 03:26] LABS: INR 1.2 INR; PROTHROMBIN TIME 12.7 SECONDS (9.0-12.0)
[2017-07-14 03:29] LABS: BASOPHILS % (AUTO) 0.1 % (0-1); EOSINOPHILS # (AUTO) 0.7 X10'3 (0-0.9); EOSINOPHILS % (AUTO) 5.9 % (0-6); HEMATOCRIT 24.6 % (42.0-52.0); HEMOGLOBIN 8.1 g/dl (14.0-17.9); LYMPHOCYTES # (AUTO) 0.3 X10'3 (1.1-4.8); LYMPHOCYTES % (AUTO) 2.9 % (21-51); MEAN CORPUSCULAR HEMOGLOBIN 25.1 PG (27.0-31.0); MEAN CORPUSCULAR HGB CONC 32.8 % (33.0-36.5); MEAN CORPUSCULAR VOLUME 76.5 FL (78-98); MEAN PLATELET VOLUME 8.5 FL (7.4-10.4); MONOCYTES % (AUTO) 8.5 % (2-12); NEUTROPHILS # (AUTO) 9.6 X10'3 (1.8-7.7); NEUTROPHILS % (AUTO) 82.6 % (42-75); PLATELET COUNT 243 X10'3 (140-440); RED BLOOD COUNT 3.21 X10'6 (4.70-6.10); RED CELL DISTRIBUTION WIDTH 20.3 % (11.5-14.5); WHITE BLOOD COUNT 11.7 X10'3 (4.5-11.0)
[2017-07-14 03:51] LABS: ALANINE AMINOTRANSFERASE 20 U/L (12-78); ALBUMIN 1.9 G/DL (3.4-5.0); ALBUMIN/GLOBULIN RATIO 0.5 (1.1-1.5); ALKALINE PHOSPHATASE 75 IU/L (46-116); ANION GAP 8 (8-16); ASPARTATE AMINO TRANSFERASE 44 U/L (10-37); BILIRUBIN,TOTAL 3.7 MG/DL (0.1-1.0); BLOOD UREA NITROGEN 73 MG/DL (7-18); BUN/CREATININE RATIO 31.1 (5.4-32.0); CALCIUM 7.5 MG/DL (8.5-10.1); CHLORIDE 114 MMOL/L (99-107); CREATININE 2.35 MG/DL (0.60-1.10); GLUCOSE 152 MG/DL (70-104); MAGNESIUM 2.6 MG/DL (1.5-2.4); PHOSPHORUS 2.5 MG/DL (2.3-4.5); POTASSIUM 3.5 MMOL/L (3.5-5.1); PREALBUMIN 6.6 MG/DL (19-36); SODIUM 150 MMOL/L (135-145); TOTAL CARBON DIOXIDE 28.3 MMOL/L (24-32); TOTAL PROTEIN 5.6 G/DL (6.4-8.2); TRIGLYCERIDES 276 MG/DL (20-135); eGFR 29 ML/MIN
[2017-07-14] MEDS: vasopressin inj. 60 UNIT in normal saline 100ml IV soln 97 ML IV SCH (04:08)
[2017-07-14 04:25] LABS: ABG BASE EXCESS 1.4 mmol/L (-2.0-3.0); ABG HCO3 26.5 mmol/L (22.0-26.0); ABG OXYGEN SATURATION 93.2 % (95-98); ABG PH (T) 7.374 (7.350-7.450); ABG PO2 (T) 75.6 mmHg (83-108); FCOHb 0.6 % (0.5-1.5); FO2Hb 92.6 % (94-100); MINUTE VOLUME 13 L/min; PATIENT TEMPERATURE 38.4; PEEP 5 cm H2O; RESPIRATORY RATE 18 b/min; RESPIRATORY RATE (OBSERVED) 18 b/min; TIDAL VOLUME 600 mL; TOTAL HEMOGLOBIN 8.6 G/dl (14.0-18.0)
[2017-07-14] MEDS: enoxaparin 30mg/0.3ml syringe SUBCUT SCH ×2 (08:00→21:05)
[2017-07-14] MEDS: atorvastatin 20mg tablet PO SCH (08:00)
[2017-07-14] MEDS: lisinopril 2.5mg tablet PO SCH (08:00)
[2017-07-14] MEDS: aspirin 325mg tablet, delayed-release (Ecotrin) PO SCH (08:00)
[2017-07-14] MEDS: K and/or MAG REPLACEMENT MC SCH (08:00)
[2017-07-14] MEDS: pantoprazole 40 MG vial IV SCH (08:32)
[2017-07-14] MEDS: digoxin 250mcg/ml 2ml ampule IV SCH (08:38)
[2017-07-14] MEDS: piperacillin/tazo 3.375gm/50ml 50 ML IV SCH ×3 (08:39→19:58)
[2017-07-14] MEDS: fluconazole-Diflucan 200mg/NS 100 ML IV SCH (08:40)
[2017-07-14] MEDS: methylnaltrexone br 12mg/0.6ml inj***SubQ only SQ SCH (08:42)
[2017-07-14] MEDS ORDERED: furosemide 40mg/4ml inj IV ONE (09:20)
[2017-07-14] MEDS: dextrose 5%-water 1,000 ML IV SCH (09:35)
[2017-07-14] MEDS: levoTHYROXINE sod inj. 100mcg/5 ml vial IV SCH (10:01)
[2017-07-14] MEDS: acetaminophen 650mg rectal suppository RC PRN (11:36)
[2017-07-14] MEDS: FENTANYL-0.9 % NACL/PF 100 ML IV PRN (12:58)
[2017-07-14] MEDS ORDERED: meropenem inj 1 GM in normal saline 100ml IV soln 100 ML IV SCH (16:00)
[2017-07-14] MEDS: sucralfate 1gm/10ml UD suspension PO SCH ×2 (16:00→21:50)
[2017-07-14] MEDS: [UNRECOGNIZED DRUG - REMARK] IV SCH ×8 (16:57→20:07)
[2017-07-14] MEDS: gabapentin 300mg capsule PO SCH (20:00)
[2017-07-14] MEDS: potassium chloride 8mEq ER tablet PO SCH (20:00)
[2017-07-14] MEDS: insulin glargine (Lantus) pen - multi-dose SQ SCH (20:01)
[2017-07-14] MEDS: insulin Lispro (HumaLOG) vial - multi-dose SQ SCH (20:03)
[2017-07-15] VITALS (26 sets, daily range): BP systolic 106–133; BP diastolic 49–63
[2017-07-15] MEDS: metoclopramide 5 mg/ml inj IV SCH ×4 (01:03→21:12)
[2017-07-15] MEDS: piperacillin/tazo 3.375gm/50ml 50 ML IV SCH ×3 (01:04→12:59)
[2017-07-15] MEDS: mineral oil/petrolatum ophthal oint EACHEYE SCH ×4 (01:04→21:10)
[2017-07-15] MEDS: midazolam 100mg in NS 100ml 100 ML IV PRN ×2 (01:04→18:48)
[2017-07-15] MEDS: FENTANYL-0.9 % NACL/PF 100 ML IV PRN ×2 (01:05→18:48)
[2017-07-15] MEDS: dextrose 5%-water 1,000 ML IV SCH ×3 (02:21→21:52)
[2017-07-15] MEDS ORDERED: INSULIN REGULAR IV ONE (02:23)
[2017-07-15] MEDS: insulin regular, human 100 UNITS in normal saline 100ml IV soln 99 ML IV SCH ×28 (02:23→23:17)
[2017-07-15 03:02] LABS: BASOPHILS % (AUTO) 0 % (0-1); EOSINOPHILS # (AUTO) 0.5 X10'3 (0-0.9); EOSINOPHILS % (AUTO) 4.2 % (0-6); HEMATOCRIT 23.3 % (42.0-52.0); HEMOGLOBIN 7.7 g/dl (14.0-17.9); LYMPHOCYTES # (AUTO) 0.5 X10'3 (1.1-4.8); LYMPHOCYTES % (AUTO) 3.9 % (21-51); MEAN CORPUSCULAR HEMOGLOBIN 25.5 PG (27.0-31.0); MEAN CORPUSCULAR HGB CONC 33.1 % (33.0-36.5); MEAN PLATELET VOLUME 8.6 FL (7.4-10.4); MONOCYTES # (AUTO) 1.1 X10'3 (0-0.9); MONOCYTES % (AUTO) 8.2 % (2-12); NEUTROPHILS # (AUTO) 10.9 X10'3 (1.8-7.7); NEUTROPHILS % (AUTO) 83.7 % (42-75); PLATELET COUNT 272 X10'3 (140-440); RED BLOOD COUNT 3.03 X10'6 (4.70-6.10); RED CELL DISTRIBUTION WIDTH 20.7 % (11.5-14.5)
[2017-07-15 03:12] LABS: INR 1.1 INR; PROTHROMBIN TIME 11.5 SECONDS (9.0-12.0)
[2017-07-15 03:18] LABS: ALANINE AMINOTRANSFERASE 16 U/L (12-78); ALBUMIN 1.7 G/DL (3.4-5.0); ALBUMIN/GLOBULIN RATIO 0.5 (1.1-1.5); ALKALINE PHOSPHATASE 77 IU/L (46-116); ANION GAP 8 (8-16); ASPARTATE AMINO TRANSFERASE 52 U/L (10-37); BILIRUBIN,TOTAL 3.6 MG/DL (0.1-1.0); BLOOD UREA NITROGEN 60 MG/DL (7-18); BUN/CREATININE RATIO 28.6 (5.4-32.0); CALCIUM 7.7 MG/DL (8.5-10.1); CHLORIDE 116 MMOL/L (99-107); GLUCOSE 142 MG/DL (70-104); MAGNESIUM 2.4 MG/DL (1.5-2.4); PHOSPHORUS 1.9 MG/DL (2.3-4.5); POTASSIUM 3.1 MMOL/L (3.5-5.1); SODIUM 153 MMOL/L (135-145); TOTAL CARBON DIOXIDE 28.6 MMOL/L (24-32); TOTAL PROTEIN 5.4 G/DL (6.4-8.2); eGFR 33 ML/MIN
[2017-07-15 03:32] LABS: ANISOCYTOSIS 3+; NUCLEATED RED BLOOD CELLS 2 /100WBC (0-0); PLATELET ESTIMATE NORMAL; TOTAL CELLS COUNTED 100
[2017-07-15 03:33] LABS: ELLIPTOCYTES FEW; HYPOCHROMASIA 2+; POLYCHROMASIA 1+
[2017-07-15] MEDS ORDERED: potassium Cl 40MEQ/250ML bag 250 ML IV ONE (03:43)
[2017-07-15 03:51] LABS: ABG BASE EXCESS 0.8 mmol/L (-2.0-3.0); ABG OXYGEN SATURATION 93.2 % (95-98); ABG PCO2 (T) 47.2 mmHg (35.0-48.0); ABG PH (T) 7.365 (7.350-7.450); ABG PO2 (T) 76.3 mmHg (83-108); FCOHb 0.4 % (0.5-1.5); FMetHb 0.2 % (0.3-1.12); FO2Hb 92.6 % (94-100); MINUTE VOLUME 14 L/min; PATIENT TEMPERATURE 38.4; PEEP 5 cm H2O; RESPIRATORY RATE 18 b/min; RESPIRATORY RATE (OBSERVED) 22 b/min; TIDAL VOLUME 600 mL; TOTAL HEMOGLOBIN 8.3 G/dl (14.0-18.0)
[2017-07-15] MEDS: [UNRECOGNIZED DRUG - REMARK] IV SCH ×4 (04:12)
[2017-07-15] MEDS: sucralfate 1gm/10ml UD suspension PO SCH ×2 (08:00→15:56)
[2017-07-15] MEDS: atorvastatin 20mg tablet PO SCH (08:00)
[2017-07-15] MEDS: potassium chloride 8mEq ER tablet PO SCH ×2 (08:00→20:00)
[2017-07-15] MEDS: aspirin 325mg tablet, delayed-release (Ecotrin) PO SCH (08:00)
[2017-07-15] MEDS: lisinopril 2.5mg tablet PO SCH (08:00)
[2017-07-15] MEDS: gabapentin 300mg capsule PO SCH ×2 (08:00→20:00)
[2017-07-15] MEDS: enoxaparin 30mg/0.3ml syringe SUBCUT SCH ×2 (08:00→21:14)
[2017-07-15] MEDS: pantoprazole 40 MG vial IV SCH (08:50)
[2017-07-15] MEDS: digoxin 250mcg/ml 2ml ampule IV SCH (08:52)
[2017-07-15] MEDS: fluconazole-Diflucan 200mg/NS 100 ML IV SCH (08:54)
[2017-07-15] MEDS: levoTHYROXINE sod inj. 100mcg/5 ml vial IV SCH (09:21)
[2017-07-15] MEDS ORDERED: potassium phosphate inj 15 MMOL in dextrose 5%-water 150 ML IV PRN (11:30)
[2017-07-15] MEDS: DOBUTamine-DoBUTrex 500mg/D5W 250 ML IV SCH (12:05)
[2017-07-15] MEDS ORDERED: rocuronium 10mg/ml inj IV ONE ×2 (12:59→14:19)
[2017-07-15] MEDS ORDERED: MIDAZolam 5mg/5ml vial ONE (13:00)
[2017-07-15] MEDS ORDERED: sevoflurane 250ml liquid IH ONE (13:02)
[2017-07-15] MEDS ORDERED: LIDOcaine 1%/PF (10mg/ml) 5ml vial ONE (13:09)
[2017-07-15] MEDS ORDERED: insulin regular, human vial - multi-dose ONE (13:34)
[2017-07-15] MEDS ORDERED: mineral oil/petrolatum ophthal oint ONE (14:22)
[2017-07-15] MEDS: furosemide 40mg/4ml inj IV SCH ×2 (14:35→21:12)
[2017-07-15] MEDS: meropenem inj 1 GM in dextrose 5%-water 100 ML IV SCH ×2 (15:55→23:59)
[2017-07-15] MEDS: NORMAL SALINE IV SCH ×2 (15:56→18:03)
[2017-07-15] MEDS: NOREPINEPHRINE IV SCH ×2 (15:56→18:03)
[2017-07-15] MEDS: vasopressin inj. 60 UNIT in normal saline 100ml IV soln 97 ML IV SCH (19:00)
[2017-07-15] MEDS ORDERED: CHLORIDE IV SCH ×10 (20:00)
[2017-07-15] MEDS ORDERED: [UNRECOGNIZED DRUG - OTHER] IV SCH ×10 (20:00)
[2017-07-15] MEDS ORDERED: SODIUM IV SCH ×10 (20:00)
[2017-07-15] MEDS ORDERED: POTASSIUM IV SCH ×10 (20:00)
[2017-07-15] MEDS ORDERED: CALCIUM GLUCONATE IV SCH ×10 (20:00)
[2017-07-15] MEDS ORDERED: fluconazole-Diflucan 200mg/NS 100 ML IV ONE (20:00)
[2017-07-15 20:30] LABS: ABG BASE EXCESS -4.2 mmol/L (-2.0-3.0); ABG HCO3 23.4 mmol/L (22.0-26.0); ABG OXYGEN SATURATION 92.3 % (95-98); ABG PCO2 (T) 59.4 mmHg (35.0-48.0); ABG PH (T) 7.221 (7.350-7.450); ABG PO2 (T) 80.8 mmHg (83-108); FCOHb 0.3 % (0.5-1.5); FMetHb 0.4 % (0.3-1.12); FO2Hb 91.7 % (94-100); MINUTE VOLUME 12 L/min; PATIENT TEMPERATURE 38.3; PEEP 5 cm H2O; RESPIRATORY RATE 18 b/min; RESPIRATORY RATE (OBSERVED) 34 b/min; TIDAL VOLUME 600 mL
[2017-07-15] MEDS: insulin glargine (Lantus) pen - multi-dose SQ SCH (21:26)
[2017-07-16] VITALS (23 sets, daily range): BP systolic 96–154; BP diastolic 45–68
[2017-07-16] MEDS: insulin regular, human 100 UNITS in normal saline 100ml IV soln 99 ML IV SCH ×16 (00:05→23:11)
[2017-07-16] MEDS ORDERED: insulin R INFUSION 1 ML IV ONE (01:17)
[2017-07-16] MEDS: DOBUTamine-DoBUTrex 500mg/D5W 250 ML IV SCH ×3 (01:17→19:23)
[2017-07-16] MEDS: metoclopramide 5 mg/ml inj IV SCH ×4 (01:48→19:32)
[2017-07-16] MEDS: furosemide 40mg/4ml inj IV SCH ×4 (01:48→19:33)
[2017-07-16] MEDS: mineral oil/petrolatum ophthal oint EACHEYE SCH ×4 (01:52→19:33)
[2017-07-16 04:16] LABS: INR 1.1 INR; PROTHROMBIN TIME 11.4 SECONDS (9.0-12.0)
[2017-07-16 04:23] LABS: ALANINE AMINOTRANSFERASE 21 U/L (12-78); ALBUMIN 1.6 G/DL (3.4-5.0); ALKALINE PHOSPHATASE 86 IU/L (46-116); ANION GAP 9 (8-16); ASPARTATE AMINO TRANSFERASE 70 U/L (10-37); BILIRUBIN,TOTAL 4.1 MG/DL (0.1-1.0); BLOOD UREA NITROGEN 54 MG/DL (7-18); BUN/CREATININE RATIO 19.9 (5.4-32.0); CALCIUM 7.4 MG/DL (8.5-10.1); CHLORIDE 113 MMOL/L (99-107); CREATININE 2.71 MG/DL (0.60-1.10); GLUCOSE 144 MG/DL (70-104); MAGNESIUM 2.1 MG/DL (1.5-2.4); POTASSIUM 3.3 MMOL/L (3.5-5.1); PREALBUMIN 8.2 MG/DL (19-36); SODIUM 149 MMOL/L (135-145); TOTAL CARBON DIOXIDE 27.1 MMOL/L (24-32); eGFR 24 ML/MIN
[2017-07-16 04:24] LABS: ALBUMIN/GLOBULIN RATIO 0.4 (1.1-1.5); PHOSPHORUS 2.7 MG/DL (2.3-4.5); TOTAL PROTEIN 5.9 G/DL (6.4-8.2); TRIGLYCERIDES 245 MG/DL (20-135)
[2017-07-16 04:36] LABS: ABG BASE EXCESS -0.7 mmol/L (-2.0-3.0); ABG HCO3 24.8 mmol/L (22.0-26.0); ABG OXYGEN SATURATION 93.9 % (95-98); ABG PCO2 (T) 46.2 mmHg (35.0-48.0); ABG PH (T) 7.351 (7.350-7.450); FCOHb 0.2 % (0.5-1.5); FMetHb 0.3 % (0.3-1.12); FO2Hb 93.4 % (94-100); MINUTE VOLUME 15 L/min; PATIENT TEMPERATURE 37.8; PEEP 5 cm H2O; RESPIRATORY RATE 20 b/min; RESPIRATORY RATE (OBSERVED) 24 b/min; TIDAL VOLUME 550 mL; TOTAL HEMOGLOBIN 8.9 G/dl (14.0-18.0)
[2017-07-16] MEDS: LIRAGLUTIDE 0.6 MG SQ SCH (08:00)
[2017-07-16] MEDS: atorvastatin 20mg tablet PO SCH (08:00)
[2017-07-16] MEDS: aspirin 325mg tablet, delayed-release (Ecotrin) PO SCH (08:00)
[2017-07-16] MEDS ORDERED: fluconazole/NS 400mg/200ml bag 200 ML IV SCH (08:00)
[2017-07-16] MEDS: enoxaparin 30mg/0.3ml syringe SUBCUT SCH ×2 (08:00→19:32)
[2017-07-16] MEDS: sucralfate 1gm/10ml UD suspension PO SCH ×4 (08:00→23:48)
[2017-07-16] MEDS: DICLOFENAC SODIUM TOP SCH ×3 (08:00→19:38)
[2017-07-16] MEDS: gabapentin 300mg capsule PO SCH ×2 (08:00→19:38)
[2017-07-16] MEDS: lisinopril 2.5mg tablet PO SCH (08:00)
[2017-07-16] MEDS: potassium chloride 8mEq ER tablet PO SCH ×2 (08:00→19:37)
[2017-07-16] MEDS: meropenem inj 1 GM in dextrose 5%-water 100 ML IV SCH (08:26)
[2017-07-16] MEDS: pantoprazole 40 MG vial IV SCH (08:28)
[2017-07-16] MEDS: digoxin 250mcg/ml 2ml ampule IV SCH (08:37)
[2017-07-16] MEDS: methylnaltrexone br 12mg/0.6ml inj***SubQ only SQ SCH (08:42)
[2017-07-16] MEDS: levoTHYROXINE sod inj. 100mcg/5 ml vial IV SCH (09:32)
[2017-07-16] MEDS: midazolam 100mg in NS 100ml 100 ML IV PRN (11:35)
[2017-07-16] MEDS: FENTANYL-0.9 % NACL/PF 100 ML IV PRN (11:35)
[2017-07-16] MEDS: potassium Cl 40MEQ/250ML bag 250 ML IV PRN (11:36)
[2017-07-16] MEDS ORDERED: LIDOcaine 1%/PF (10mg/ml) 5ml vial ONE (14:40)
[2017-07-16] MEDS: ipratropium/albuterol 3ml nebule NEB SCH ×2 (15:00→21:30)
[2017-07-16] MEDS ORDERED: meropenem inj 1 GM in normal saline 100ml IV soln 100 ML IV SCH (16:00)
[2017-07-16] MEDS: dextrose 5%-water 1,000 ML IV SCH (16:54)
[2017-07-16] MEDS: meropenem inj 1 GM in normal saline 100ml IV soln 100 ML IV SCH (19:29)
[2017-07-16] MEDS ORDERED: [UNRECOGNIZED DRUG - OTHER] IV SCH ×10 (20:00)
[2017-07-16] MEDS ORDERED: SODIUM IV SCH ×10 (20:00)
[2017-07-16] MEDS ORDERED: CHLORIDE IV SCH ×10 (20:00)
[2017-07-16] MEDS ORDERED: POTASSIUM IV SCH ×10 (20:00)
[2017-07-16] MEDS ORDERED: CALCIUM GLUCONATE IV SCH ×10 (20:00)
[2017-07-16] MEDS: insulin glargine (Lantus) pen - multi-dose SQ SCH (23:13)
[2017-07-17] VITALS (23 sets, daily range): BP systolic 114–147; BP diastolic 49–66
[2017-07-17] MEDS: DICLOFENAC SODIUM TOP SCH ×4 (02:00→20:00)
[2017-07-17] MEDS: mineral oil/petrolatum ophthal oint EACHEYE SCH ×4 (02:18→20:22)
[2017-07-17] MEDS: furosemide 40mg/4ml inj IV SCH ×2 (02:18→07:15)
[2017-07-17] MEDS: metoclopramide 5 mg/ml inj IV SCH ×4 (02:18→20:22)
[2017-07-17] MEDS: ipratropium/albuterol 3ml nebule NEB SCH ×4 (02:45→21:02)
[2017-07-17 03:33] LABS: BASOPHILS % (AUTO) 0 % (0-1); EOSINOPHILS # (AUTO) 0.8 X10'3 (0-0.9); EOSINOPHILS % (AUTO) 4.2 % (0-6); HEMATOCRIT 24.8 % (42.0-52.0); LYMPHOCYTES % (AUTO) 5.3 % (21-51); MEAN CORPUSCULAR HEMOGLOBIN 25.5 PG (27.0-31.0); MEAN CORPUSCULAR HGB CONC 32.3 % (33.0-36.5); MONOCYTES # (AUTO) 1.4 X10'3 (0-0.9); MONOCYTES % (AUTO) 7.8 % (2-12); NEUTROPHILS # (AUTO) 15.3 X10'3 (1.8-7.7); NEUTROPHILS % (AUTO) 82.7 % (42-75); PLATELET COUNT 351 X10'3 (140-440); RED BLOOD COUNT 3.13 X10'6 (4.70-6.10); RED CELL DISTRIBUTION WIDTH 21.9 % (11.5-14.5); WHITE BLOOD COUNT 18.5 X10'3 (4.5-11.0)
[2017-07-17 03:42] LABS: INR 1.1 INR
[2017-07-17 03:52] LABS: ALANINE AMINOTRANSFERASE 24 U/L (12-78); ALBUMIN 1.4 G/DL (3.4-5.0); ALBUMIN/GLOBULIN RATIO 0.3 (1.1-1.5); ALKALINE PHOSPHATASE 84 IU/L (46-116); ANION GAP 11 (8-16); ASPARTATE AMINO TRANSFERASE 72 U/L (10-37); BILIRUBIN,TOTAL 3.5 MG/DL (0.1-1.0); BLOOD UREA NITROGEN 71 MG/DL (7-18); BUN/CREATININE RATIO 19.3 (5.4-32.0); CALCIUM 7.6 MG/DL (8.5-10.1); CHLORIDE 111 MMOL/L (99-107); CREATININE 3.67 MG/DL (0.60-1.10); GLUCOSE 143 MG/DL (70-104); MAGNESIUM 1.8 MG/DL (1.5-2.4); PHOSPHORUS 3.1 MG/DL (2.3-4.5); POTASSIUM 3.4 MMOL/L (3.5-5.1); SODIUM 147 MMOL/L (135-145); TOTAL CARBON DIOXIDE 24.7 MMOL/L (24-32); TOTAL PROTEIN 5.7 G/DL (6.4-8.2); eGFR 17 ML/MIN
[2017-07-17] MEDS: midazolam 100mg in NS 100ml 100 ML IV PRN (03:55)
[2017-07-17 05:02] LABS: NUCLEATED RED BLOOD CELLS 3 /100WBC (0-0); TOTAL CELLS COUNTED 100
[2017-07-17 05:05] LABS: ABG BASE EXCESS -3.4 mmol/L (-2.0-3.0); ABG HCO3 22.1 mmol/L (22.0-26.0); ABG OXYGEN SATURATION 94.9 % (95-98); ABG PCO2 (T) 42.7 mmHg (35.0-48.0); ABG PH (T) 7.334 (7.350-7.450); ABG PO2 (T) 82.6 mmHg (83-108); FCOHb 0.3 % (0.5-1.5); FO2Hb 94.6 % (94-100); MINUTE VOLUME 16 L/min; PATIENT TEMPERATURE 37.6; PEEP 5 cm H2O; RESPIRATORY RATE 20 b/min; RESPIRATORY RATE (OBSERVED) 28 b/min; TIDAL VOLUME 550 mL; TOTAL HEMOGLOBIN 8.4 G/dl (14.0-18.0)
[2017-07-17 05:20] LABS: ANISOCYTOSIS 3+; PLATELET ESTIMATE NORMAL
[2017-07-17 05:21] LABS: POLYCHROMASIA 2+; TOXIC GRANULATION 2+
[2017-07-17 05:22] LABS: ELLIPTOCYTES FEW; HYPOCHROMASIA 2+; LARGE PLATELETS FEW; TEAR DROP CELLS FEW
[2017-07-17] MEDS: insulin regular, human 100 UNITS in normal saline 100ml IV soln 99 ML IV SCH ×8 (06:04→16:34)
[2017-07-17] MEDS: aspirin 325mg tablet, delayed-release (Ecotrin) PO SCH (06:37)
[2017-07-17] MEDS: sucralfate 1gm/10ml UD suspension PO SCH ×3 (06:37→23:56)
[2017-07-17] MEDS: lisinopril 2.5mg tablet PO SCH (06:38)
[2017-07-17] MEDS: gabapentin 300mg capsule PO SCH ×2 (06:38→20:00)
[2017-07-17] MEDS: potassium chloride 8mEq ER tablet PO SCH ×2 (06:38→20:00)
[2017-07-17] MEDS: atorvastatin 20mg tablet PO SCH (06:38)
[2017-07-17] MEDS: LIRAGLUTIDE 0.6 MG SQ SCH (06:39)
[2017-07-17] MEDS: meropenem inj 1 GM in normal saline 100ml IV soln 100 ML IV SCH (07:14)
[2017-07-17] MEDS: digoxin 250mcg/ml 2ml ampule IV SCH (07:15)
[2017-07-17] MEDS: pantoprazole 40 MG vial IV SCH (07:15)
[2017-07-17] MEDS: enoxaparin 30mg/0.3ml syringe SUBCUT SCH ×2 (07:16→20:24)
[2017-07-17] MEDS: fluconazole-Diflucan 200mg/NS 100 ML IV SCH (07:48)
[2017-07-17] MEDS: FENTANYL-0.9 % NACL/PF 100 ML IV PRN (08:52)
[2017-07-17] MEDS: levoTHYROXINE sod inj. 100mcg/5 ml vial IV SCH (08:53)
[2017-07-17] MEDS: dextrose 5%-water 1,000 ML IV SCH (08:54)
[2017-07-17 09:56] LABS: ALANINE AMINOTRANSFERASE 26 U/L (12-78); ALBUMIN 1.4 G/DL (3.4-5.0); ALBUMIN/GLOBULIN RATIO 0.3 (1.1-1.5); ALKALINE PHOSPHATASE 80 IU/L (46-116); ANION GAP 12 (8-16); ASPARTATE AMINO TRANSFERASE 71 U/L (10-37); BILIRUBIN,TOTAL 3.2 MG/DL (0.1-1.0); BLOOD UREA NITROGEN 75 MG/DL (7-18); BUN/CREATININE RATIO 19.9 (5.4-32.0); CALCIUM 7.9 MG/DL (8.5-10.1); CHLORIDE 111 MMOL/L (99-107); CREATININE 3.77 MG/DL (0.60-1.10); GLUCOSE 123 MG/DL (70-104); MAGNESIUM 1.9 MG/DL (1.5-2.4); PHOSPHORUS 3.4 MG/DL (2.3-4.5); POTASSIUM 3.4 MMOL/L (3.5-5.1); SODIUM 146 MMOL/L (135-145); TOTAL CARBON DIOXIDE 23.4 MMOL/L (24-32); TOTAL PROTEIN 5.8 G/DL (6.4-8.2); eGFR 17 ML/MIN
[2017-07-17] MEDS: potassium Cl 40MEQ/250ML bag 250 ML IV PRN ×2 (11:09→23:26)
[2017-07-17] MEDS: furosemide inj 100 ML IV SCH ×3 (11:10→22:55)
[2017-07-17 11:22] LABS: TROPONIN I 0.12 NG/ML (0.0-0.05)
[2017-07-17] MEDS: DOBUTamine-DoBUTrex 500mg/D5W 250 ML IV SCH ×2 (14:35→22:23)
[2017-07-17] MEDS ORDERED: CHLORIDE IV SCH ×10 (16:15)
[2017-07-17] MEDS ORDERED: CALCIUM GLUCONATE IV SCH ×10 (16:15)
[2017-07-17] MEDS ORDERED: [UNRECOGNIZED DRUG - OTHER] IV SCH ×10 (16:15)
[2017-07-17] MEDS ORDERED: POTASSIUM IV SCH ×10 (16:15)
[2017-07-17] MEDS ORDERED: SODIUM IV SCH ×10 (16:15)
[2017-07-17] MEDS: NOREPINEPHRINE IV SCH (17:00)
[2017-07-17] MEDS: NORMAL SALINE IV SCH (17:00)
[2017-07-17] MEDS: vasopressin inj. 60 UNIT in normal saline 100ml IV soln 97 ML IV SCH (18:29)
[2017-07-17] MEDS: POTASSIUM CL IV SCH ×8 (18:53)
[2017-07-17] MEDS: SODIUM PHOSPHATE IV SCH ×8 (18:53)
[2017-07-17] MEDS: CALCIUM GLUCONATE IV SCH ×8 (18:53)
[2017-07-17] MEDS: [UNRECOGNIZED DRUG - OTHER] IV SCH ×8 (18:53)
[2017-07-17] MEDS: MVI IV SCH ×8 (18:53)
[2017-07-17] MEDS ORDERED: metroNIDAZOLE 500mg tablet PO SCH (20:00)
[2017-07-17] MEDS: CefTRIAXone 2gm/D5W 50ml 50 ML IV SCH (20:22)
[2017-07-17] MEDS: insulin glargine (Lantus) pen - multi-dose SQ SCH (20:32)
[2017-07-17] MEDS: diltiazem-NS 100mg/100ml 100 ML IV SCH (21:20)
[2017-07-17] MEDS: metroNIDAZOLE-Flagyl 500mg/NS 100 ML IV SCH (21:56)
[2017-07-17 22:32] LABS: ALANINE AMINOTRANSFERASE 32 U/L (12-78); ALBUMIN 1.4 G/DL (3.4-5.0); ALBUMIN/GLOBULIN RATIO 0.3 (1.1-1.5); ALKALINE PHOSPHATASE 88 IU/L (46-116); ANION GAP 12 (8-16); ASPARTATE AMINO TRANSFERASE 76 U/L (10-37); BILIRUBIN,TOTAL 2.7 MG/DL (0.1-1.0); BLOOD UREA NITROGEN 85 MG/DL (7-18); BUN/CREATININE RATIO 21.5 (5.4-32.0); CALCIUM 7.9 MG/DL (8.5-10.1); CHLORIDE 110 MMOL/L (99-107); CREATININE 3.95 MG/DL (0.60-1.10); GLUCOSE 157 MG/DL (70-104); MAGNESIUM 1.8 MG/DL (1.5-2.4); POTASSIUM 3.5 MMOL/L (3.5-5.1); SODIUM 146 MMOL/L (135-145); TOTAL CARBON DIOXIDE 23.6 MMOL/L (24-32); TOTAL PROTEIN 6.1 G/DL (6.4-8.2); eGFR 16 ML/MIN
[2017-07-17] MEDS ORDERED: potassium Cl 40MEQ/250ML bag 250 ML IV ONE (23:20)
[2017-07-18] VITALS (24 sets, daily range): BP systolic 88–146; BP diastolic 45–68
[2017-07-18] MEDS: midazolam 100mg in NS 100ml 100 ML IV PRN ×2 (00:15→21:01)
[2017-07-18] MEDS: metoclopramide 5 mg/ml inj IV SCH ×4 (01:49→19:44)
[2017-07-18] MEDS: mineral oil/petrolatum ophthal oint EACHEYE SCH ×4 (01:49→19:44)
[2017-07-18] MEDS: DICLOFENAC SODIUM TOP SCH ×4 (01:49→19:51)
[2017-07-18] MEDS: insulin regular, human 100 UNITS in normal saline 100ml IV soln 99 ML IV SCH ×10 (01:59→20:19)
[2017-07-18] MEDS: FENTANYL-0.9 % NACL/PF 100 ML IV PRN ×2 (02:00→22:51)
[2017-07-18] MEDS: ipratropium/albuterol 3ml nebule NEB SCH ×4 (03:04→21:23)
[2017-07-18 03:21] LABS: ABG BASE EXCESS -5.1 mmol/L (-2.0-3.0); ABG HCO3 20.9 mmol/L (22.0-26.0); ABG OXYGEN SATURATION 93.8 % (95-98); ABG PCO2 (T) 44.5 mmHg (35.0-48.0); ABG PH (T) 7.294 (7.350-7.450); ABG PO2 (T) 82.2 mmHg (83-108); FCOHb 0.2 % (0.5-1.5); FMetHb 0.3 % (0.3-1.12); FO2Hb 93.3 % (94-100); MINUTE VOLUME 17 L/min; PATIENT TEMPERATURE 37.9; PEEP 5 cm H2O; RESPIRATORY RATE 20 b/min; RESPIRATORY RATE (OBSERVED) 29 b/min; TIDAL VOLUME 550 mL; TOTAL HEMOGLOBIN 9.2 G/dl (14.0-18.0)
[2017-07-18 04:29] LABS: BASOPHILS % (AUTO) 0.2 % (0-1); EOSINOPHILS # (AUTO) 0.7 X10'3 (0-0.9); HEMATOCRIT 24.7 % (42.0-52.0); HEMOGLOBIN 8.2 g/dl (14.0-17.9); LYMPHOCYTES # (AUTO) 0.9 X10'3 (1.1-4.8); LYMPHOCYTES % (AUTO) 5.8 % (21-51); MEAN CORPUSCULAR HEMOGLOBIN 25.8 PG (27.0-31.0); MEAN CORPUSCULAR HGB CONC 33.2 % (33.0-36.5); MEAN CORPUSCULAR VOLUME 77.7 FL (78-98); MEAN PLATELET VOLUME 9.2 FL (7.4-10.4); MONOCYTES # (AUTO) 1.3 X10'3 (0-0.9); MONOCYTES % (AUTO) 8.5 % (2-12); NEUTROPHILS % (AUTO) 80.5 % (42-75); PLATELET COUNT 409 X10'3 (140-440); RED BLOOD COUNT 3.18 X10'6 (4.70-6.10); RED CELL DISTRIBUTION WIDTH 21.9 % (11.5-14.5); WHITE BLOOD COUNT 14.9 X10'3 (4.5-11.0)
[2017-07-18 04:37] LABS: INR 1.1 INR
[2017-07-18 04:45] LABS: ALANINE AMINOTRANSFERASE 30 U/L (12-78); ALBUMIN 1.4 G/DL (3.4-5.0); ALBUMIN/GLOBULIN RATIO 0.3 (1.1-1.5); ALKALINE PHOSPHATASE 87 IU/L (46-116); ANION GAP 13 (8-16); ASPARTATE AMINO TRANSFERASE 77 U/L (10-37); BILIRUBIN,TOTAL 2.6 MG/DL (0.1-1.0); BLOOD UREA NITROGEN 86 MG/DL (7-18); BUN/CREATININE RATIO 21.7 (5.4-32.0); CALCIUM 8.1 MG/DL (8.5-10.1); CHLORIDE 111 MMOL/L (99-107); CREATININE 3.97 MG/DL (0.60-1.10); GLUCOSE 146 MG/DL (70-104); POTASSIUM 4.1 MMOL/L (3.5-5.1); SODIUM 146 MMOL/L (135-145); TOTAL CARBON DIOXIDE 21.9 MMOL/L (24-32); TOTAL PROTEIN 6.2 G/DL (6.4-8.2); eGFR 16 ML/MIN
[2017-07-18] MEDS: furosemide inj 100 ML IV SCH ×2 (05:35→12:15)
[2017-07-18] MEDS: sucralfate 1gm/10ml UD suspension PO SCH ×3 (08:00→23:51)
[2017-07-18] MEDS: atorvastatin 20mg tablet PO SCH (08:00)
[2017-07-18] MEDS: potassium chloride 8mEq ER tablet PO SCH ×2 (08:00→19:45)
[2017-07-18] MEDS: lisinopril 2.5mg tablet PO SCH (08:00)
[2017-07-18] MEDS: aspirin 325mg tablet, delayed-release (Ecotrin) PO SCH (08:00)
[2017-07-18] MEDS: gabapentin 300mg capsule PO SCH ×2 (08:00→19:45)
[2017-07-18] MEDS: LIRAGLUTIDE 0.6 MG SQ SCH (08:00)
[2017-07-18] MEDS: digoxin 250mcg/ml 2ml ampule IV SCH (08:10)
[2017-07-18] MEDS: CefTRIAXone 2gm/D5W 50ml 50 ML IV SCH (08:10)
[2017-07-18] MEDS: pantoprazole 40 MG vial IV SCH (08:10)
[2017-07-18] MEDS: fluconazole-Diflucan 200mg/NS 100 ML IV SCH (08:12)
[2017-07-18] MEDS: metroNIDAZOLE-Flagyl 500mg/NS 100 ML IV SCH ×2 (08:12→19:44)
[2017-07-18] MEDS: enoxaparin 30mg/0.3ml syringe SUBCUT SCH ×2 (08:13→19:46)
[2017-07-18] MEDS: methylnaltrexone br 12mg/0.6ml inj***SubQ only SQ SCH (08:14)
[2017-07-18] MEDS: DOBUTamine-DoBUTrex 500mg/D5W 250 ML IV SCH (08:56)
[2017-07-18] MEDS: levoTHYROXINE sod inj. 100mcg/5 ml vial IV SCH (09:26)
[2017-07-18 09:54] LABS: NUCLEATED RED BLOOD CELLS 2 /100WBC (0-0); TOTAL CELLS COUNTED 100
[2017-07-18 09:55] LABS: ANISOCYTOSIS 3+; HYPOCHROMASIA 2+; MICROCYTOSIS 1+; PLATELET ESTIMATE NORMAL; POLYCHROMASIA 2+; SCHISTOCYTES FEW; TOXIC GRANULATION 3+
[2017-07-18 09:56] LABS: ELLIPTOCYTES FEW
[2017-07-18 10:39] LABS: ALANINE AMINOTRANSFERASE 31 U/L (12-78); ALBUMIN 1.4 G/DL (3.4-5.0); ALBUMIN/GLOBULIN RATIO 0.3 (1.1-1.5); ALKALINE PHOSPHATASE 89 IU/L (46-116); ANION GAP 15 (8-16); ASPARTATE AMINO TRANSFERASE 73 U/L (10-37); BILIRUBIN,TOTAL 2.4 MG/DL (0.1-1.0); BLOOD UREA NITROGEN 89 MG/DL (7-18); CALCIUM 8.1 MG/DL (8.5-10.1); CHLORIDE 111 MMOL/L (99-107); CREATININE 4.04 MG/DL (0.60-1.10); GLUCOSE 151 MG/DL (70-104); POTASSIUM 3.9 MMOL/L (3.5-5.1); SODIUM 146 MMOL/L (135-145); TOTAL CARBON DIOXIDE 20.4 MMOL/L (24-32); TOTAL PROTEIN 6.1 G/DL (6.4-8.2); eGFR 15 ML/MIN
[2017-07-18] MEDS ORDERED: normal saline 1000ml 1,000 ML IVB ONE (10:58)
[2017-07-18] MEDS: normal saline 1000ml 1,000 ML IV SCH ×3 (11:14→19:54)
[2017-07-18 11:21] LABS: OXYGEN SATURATION (MIXED VEN) 68.8 % (60-80); PO2 MIXED VENOUS (TEMP COR) 37.9 mmHg (35-46)
[2017-07-18] MEDS: diltiazem-NS 100mg/100ml 100 ML IV SCH (16:26)
[2017-07-18] MEDS: POTASSIUM CL IV SCH ×8 (17:56)
[2017-07-18] MEDS: SODIUM PHOSPHATE IV SCH ×8 (17:56)
[2017-07-18] MEDS: CALCIUM GLUCONATE IV SCH ×8 (17:56)
[2017-07-18] MEDS: [UNRECOGNIZED DRUG - OTHER] IV SCH ×8 (17:56)
[2017-07-18] MEDS: MVI IV SCH ×8 (17:56)
[2017-07-18] MEDS: insulin glargine (Lantus) pen - multi-dose SQ SCH (21:08)
[2017-07-19] VITALS (24 sets, daily range): BP systolic 104–129; BP diastolic 23–67
[2017-07-19] MEDS: NORMAL SALINE IV SCH ×2 (00:39→12:09)
[2017-07-19] MEDS: NOREPINEPHRINE IV SCH ×2 (00:39→12:09)
[2017-07-19] MEDS: DICLOFENAC SODIUM TOP SCH ×4 (01:56→20:00)
[2017-07-19] MEDS: metoclopramide 5 mg/ml inj IV SCH ×4 (01:56→20:40)
[2017-07-19] MEDS: mineral oil/petrolatum ophthal oint EACHEYE SCH ×4 (01:56→20:39)
[2017-07-19 02:52] LABS: BASOPHILS % (AUTO) 0.2 % (0-1); EOSINOPHILS # (AUTO) 0.6 X10'3 (0-0.9); EOSINOPHILS % (AUTO) 4.1 % (0-6); HEMATOCRIT 23.7 % (42.0-52.0); HEMOGLOBIN 7.8 g/dl (14.0-17.9); LYMPHOCYTES # (AUTO) 0.9 X10'3 (1.1-4.8); LYMPHOCYTES % (AUTO) 6.2 % (21-51); MEAN CORPUSCULAR HEMOGLOBIN 25.9 PG (27.0-31.0); MEAN CORPUSCULAR HGB CONC 32.9 % (33.0-36.5); MEAN CORPUSCULAR VOLUME 78.5 FL (78-98); MEAN PLATELET VOLUME 9.4 FL (7.4-10.4); MONOCYTES # (AUTO) 1.6 X10'3 (0-0.9); NEUTROPHILS # (AUTO) 11.2 X10'3 (1.8-7.7); NEUTROPHILS % (AUTO) 78.5 % (42-75); PLATELET COUNT 495 X10'3 (140-440); RED BLOOD COUNT 3.01 X10'6 (4.70-6.10); RED CELL DISTRIBUTION WIDTH 22.6 % (11.5-14.5); WHITE BLOOD COUNT 14.2 X10'3 (4.5-11.0)
[2017-07-19] MEDS: ipratropium/albuterol 3ml nebule NEB SCH ×4 (02:54→21:20)
[2017-07-19] MEDS: insulin regular, human 100 UNITS in normal saline 100ml IV soln 99 ML IV SCH ×8 (03:24→23:50)
[2017-07-19 03:25] LABS: MAGNESIUM 1.7 MG/DL (1.5-2.4); PHOSPHORUS 5.5 MG/DL (2.3-4.5)
[2017-07-19] MEDS: normal saline 1000ml 1,000 ML IV SCH ×3 (03:57→19:08)
[2017-07-19 04:06] LABS: ABG BASE EXCESS -6.3 mmol/L (-2.0-3.0); ABG HCO3 19.7 mmol/L (22.0-26.0); ABG OXYGEN SATURATION 94.7 % (95-98); ABG PCO2 (T) 42.7 mmHg (35.0-48.0); ABG PH (T) 7.287 (7.350-7.450); ABG PO2 (T) 84.8 mmHg (83-108); FCOHb 0.3 % (0.5-1.5); FMetHb 0.3 % (0.3-1.12); FO2Hb 94.1 % (94-100); MINUTE VOLUME 16 L/min; PATIENT TEMPERATURE 37.8; PEEP 5 cm H2O; RESPIRATORY RATE 20 b/min; RESPIRATORY RATE (OBSERVED) 26 b/min; TIDAL VOLUME 550 mL; TOTAL HEMOGLOBIN 8.5 G/dl (14.0-18.0)
[2017-07-19 04:37] LABS: ALANINE AMINOTRANSFERASE 30 U/L (12-78); ALBUMIN 1.4 G/DL (3.4-5.0); ALBUMIN/GLOBULIN RATIO 0.3 (1.1-1.5); ALKALINE PHOSPHATASE 90 IU/L (46-116); ANION GAP 16 (8-16); ASPARTATE AMINO TRANSFERASE 72 U/L (10-37); BILIRUBIN,TOTAL 2.2 MG/DL (0.1-1.0); BLOOD UREA NITROGEN 94 MG/DL (7-18); BUN/CREATININE RATIO 22.3 (5.4-32.0); CALCIUM 7.9 MG/DL (8.5-10.1); CHLORIDE 112 MMOL/L (99-107); CREATININE 4.21 MG/DL (0.60-1.10); GLUCOSE 162 MG/DL (70-104); POTASSIUM 3.9 MMOL/L (3.5-5.1); SODIUM 146 MMOL/L (135-145); TOTAL CARBON DIOXIDE 18.1 MMOL/L (24-32); TOTAL PROTEIN 6.3 G/DL (6.4-8.2); eGFR 15 ML/MIN
[2017-07-19 06:01] LABS: INR 1.1 INR
[2017-07-19] MEDS: DOBUTamine-DoBUTrex 500mg/D5W 250 ML IV SCH ×2 (06:51→16:16)
[2017-07-19 07:25] LABS: ANISOCYTOSIS 3+; MICROCYTOSIS 1+; PLATELET ESTIMATE INCREASED; TOTAL CELLS COUNTED 100
[2017-07-19 07:26] LABS: ELLIPTOCYTES FEW; HYPOCHROMASIA 1+; POLYCHROMASIA 2+; SCHISTOCYTES FEW; TOXIC GRANULATION 3+
[2017-07-19] MEDS: sucralfate 1gm/10ml UD suspension PO SCH (08:00)
[2017-07-19] MEDS: aspirin 325mg tablet, delayed-release (Ecotrin) PO SCH (08:00)
[2017-07-19] MEDS: LIRAGLUTIDE 0.6 MG SQ SCH (08:00)
[2017-07-19] MEDS: potassium chloride 8mEq ER tablet PO SCH (08:00)
[2017-07-19] MEDS: gabapentin 300mg capsule PO SCH ×2 (08:00→20:40)
[2017-07-19] MEDS: atorvastatin 20mg tablet PO SCH (08:00)
[2017-07-19] MEDS: lisinopril 2.5mg tablet PO SCH (08:00)
[2017-07-19] MEDS: CefTRIAXone 2gm/D5W 50ml 50 ML IV SCH (08:05)
[2017-07-19] MEDS: metroNIDAZOLE-Flagyl 500mg/NS 100 ML IV SCH ×2 (08:05→20:40)
[2017-07-19] MEDS: fluconazole-Diflucan 200mg/NS 100 ML IV SCH (08:05)
[2017-07-19] MEDS: enoxaparin 30mg/0.3ml syringe SUBCUT SCH ×2 (08:06→20:41)
[2017-07-19] MEDS: pantoprazole 40 MG vial IV SCH (08:07)
[2017-07-19] MEDS: digoxin 250mcg/ml 2ml ampule IV SCH (08:07)
[2017-07-19] MEDS: levoTHYROXINE sod inj. 100mcg/5 ml vial IV SCH (08:37)
[2017-07-19] MEDS: midazolam 100mg in NS 100ml 100 ML IV PRN (10:58)
[2017-07-19] MEDS: diltiazem-NS 100mg/100ml 100 ML IV SCH (13:20)
[2017-07-19] MEDS: FENTANYL-0.9 % NACL/PF 100 ML IV PRN (13:33)
[2017-07-19] MEDS: vasopressin inj. 60 UNIT in normal saline 100ml IV soln 97 ML IV SCH (19:00)
[2017-07-19] MEDS: [UNRECOGNIZED DRUG - OTHER] IV SCH ×8 (19:08)
[2017-07-19] MEDS: SODIUM PHOSPHATE IV SCH ×8 (19:08)
[2017-07-19] MEDS: CALCIUM GLUCONATE IV SCH ×8 (19:08)
[2017-07-19] MEDS: MVI IV SCH ×8 (19:08)
[2017-07-19] MEDS: POTASSIUM CL IV SCH ×8 (19:08)
[2017-07-19] MEDS: potassium Cl oral solution 20 MEQ/15 ML PO SCH (20:41)
[2017-07-19] MEDS: insulin glargine (Lantus) pen - multi-dose SQ SCH (21:18)
[2017-07-20] VITALS (24 sets, daily range): BP systolic 94–139; BP diastolic 42–62
[2017-07-20] MEDS: DICLOFENAC SODIUM TOP SCH ×4 (02:00→20:00)
[2017-07-20] MEDS: normal saline 1000ml 1,000 ML IV SCH ×2 (02:03→09:41)
[2017-07-20] MEDS: mineral oil/petrolatum ophthal oint EACHEYE SCH ×4 (02:03→20:26)
[2017-07-20] MEDS: metoclopramide 5 mg/ml inj IV SCH ×4 (02:05→20:27)
[2017-07-20] MEDS: ipratropium/albuterol 3ml nebule NEB SCH ×4 (02:47→20:47)
[2017-07-20 03:05] LABS: ABG BASE EXCESS -11.1 mmol/L (-2.0-3.0); ABG HCO3 15.7 mmol/L (22.0-26.0); ABG OXYGEN SATURATION 94.7 % (95-98); ABG PCO2 (T) 40.3 mmHg (35.0-48.0); ABG PH (T) 7.214 (7.350-7.450); FCOHb 0.9 % (0.5-1.5); FO2Hb 93.8 % (94-100); MINUTE VOLUME 16 L/min; PATIENT TEMPERATURE 37.9; PEEP 5 cm H2O; RESPIRATORY RATE 20 b/min; RESPIRATORY RATE (OBSERVED) 28 b/min; TIDAL VOLUME 550 mL; TOTAL HEMOGLOBIN 10.3 G/dl (14.0-18.0)
[2017-07-20 04:08] LABS: PREALBUMIN 12.2 MG/DL (19-36); TRIGLYCERIDES 161 MG/DL (20-135)
[2017-07-20] MEDS: midazolam 100mg in NS 100ml 100 ML IV PRN ×2 (06:16→22:33)
[2017-07-20] MEDS: FENTANYL-0.9 % NACL/PF 100 ML IV PRN ×2 (06:17→18:12)
[2017-07-20] MEDS: DOBUTamine-DoBUTrex 500mg/D5W 250 ML IV SCH ×3 (07:00→17:21)
[2017-07-20 07:27] LABS: UREA NITROGEN 24HR,URINE 20.2 GM/24HR (7-20)
[2017-07-20] MEDS: insulin regular, human 100 UNITS in normal saline 100ml IV soln 99 ML IV SCH ×6 (07:29→16:17)
[2017-07-20] MEDS: CefTRIAXone 2gm/D5W 50ml 50 ML IV SCH (07:30)
[2017-07-20] MEDS: fluconazole-Diflucan 200mg/NS 100 ML IV SCH (07:30)
[2017-07-20] MEDS: metroNIDAZOLE-Flagyl 500mg/NS 100 ML IV SCH ×2 (07:30→20:27)
[2017-07-20] MEDS: pantoprazole 40 MG vial IV SCH (07:36)
[2017-07-20] MEDS: methylnaltrexone br 12mg/0.6ml inj***SubQ only SQ SCH (07:37)
[2017-07-20] MEDS: digoxin 250mcg/ml 2ml ampule IV SCH (07:39)
[2017-07-20] MEDS: enoxaparin 30mg/0.3ml syringe SUBCUT SCH ×2 (07:39→20:27)
[2017-07-20 07:58] LABS: ALANINE AMINOTRANSFERASE 30 U/L (12-78); ALBUMIN 1.3 G/DL (3.4-5.0); ALBUMIN/GLOBULIN RATIO 0.3 (1.1-1.5); ALKALINE PHOSPHATASE 96 IU/L (46-116); ANION GAP 18 (8-16); ASPARTATE AMINO TRANSFERASE 71 U/L (10-37); BILIRUBIN,TOTAL 1.8 MG/DL (0.1-1.0); BLOOD UREA NITROGEN 110 MG/DL (7-18); BUN/CREATININE RATIO 23.6 (5.4-32.0); CALCIUM 7.6 MG/DL (8.5-10.1); CHLORIDE 115 MMOL/L (99-107); CREATININE 4.66 MG/DL (0.60-1.10); GLUCOSE 125 MG/DL (70-104); POTASSIUM 4.5 MMOL/L (3.5-5.1); SODIUM 148 MMOL/L (135-145); TOTAL CARBON DIOXIDE 15.2 MMOL/L (24-32); TOTAL PROTEIN 6.3 G/DL (6.4-8.2); eGFR 13 ML/MIN
[2017-07-20] MEDS: levoTHYROXINE sod inj. 100mcg/5 ml vial IV SCH (08:00)
[2017-07-20] MEDS: gabapentin 300mg capsule PO SCH ×2 (08:00→20:27)
[2017-07-20] MEDS: aspirin 325mg tablet, delayed-release (Ecotrin) PO SCH (08:00)
[2017-07-20] MEDS: potassium Cl oral solution 20 MEQ/15 ML PO SCH ×2 (08:00→20:29)
[2017-07-20] MEDS: LIRAGLUTIDE 0.6 MG SQ SCH (08:00)
[2017-07-20] MEDS: atorvastatin 20mg tablet PO SCH (08:00)
[2017-07-20] MEDS: diltiazem-NS 100mg/100ml 100 ML IV SCH (09:00)
[2017-07-20] MEDS ORDERED: [UNRECOGNIZED DRUG - REMARK] IV SCH ×7 (19:00)
[2017-07-20] MEDS: insulin glargine (Lantus) pen - multi-dose SQ SCH (20:47)
[2017-07-20] MEDS: NORMAL SALINE IV SCH (22:51)
[2017-07-20] MEDS: NOREPINEPHRINE IV SCH (22:51)
[2017-07-21] VITALS (14 sets, daily range): BP systolic 98–115; BP diastolic 42–57
[2017-07-21] MEDS: DICLOFENAC SODIUM TOP SCH ×2 (02:00→07:56)
[2017-07-21] MEDS: DOBUTamine-DoBUTrex 500mg/D5W 250 ML IV SCH ×2 (02:53→12:24)
[2017-07-21] MEDS: metoclopramide 5 mg/ml inj IV SCH ×2 (02:53→07:32)
[2017-07-21] MEDS: mineral oil/petrolatum ophthal oint EACHEYE SCH ×2 (02:53→07:32)
[2017-07-21] MEDS: ipratropium/albuterol 3ml nebule NEB SCH ×2 (03:11→09:41)
[2017-07-21] MEDS: insulin regular, human 100 UNITS in normal saline 100ml IV soln 99 ML IV SCH ×2 (03:54)
[2017-07-21 03:58] LABS: BASOPHILS % (AUTO) 0.2 % (0-1); EOSINOPHILS # (AUTO) 0.6 X10'3 (0-0.9); EOSINOPHILS % (AUTO) 3.8 % (0-6); HEMOGLOBIN 7.1 g/dl (14.0-17.9); LYMPHOCYTES % (AUTO) 6.8 % (21-51); MEAN CORPUSCULAR HEMOGLOBIN 25.9 PG (27.0-31.0); MEAN CORPUSCULAR VOLUME 78.6 FL (78-98); MEAN PLATELET VOLUME 9.1 FL (7.4-10.4); MONOCYTES # (AUTO) 1.5 X10'3 (0-0.9); MONOCYTES % (AUTO) 10.4 % (2-12); NEUTROPHILS # (AUTO) 11.5 X10'3 (1.8-7.7); NEUTROPHILS % (AUTO) 78.8 % (42-75); PLATELET COUNT 576 X10'3 (140-440); RED BLOOD COUNT 2.74 X10'6 (4.70-6.10); WHITE BLOOD COUNT 14.6 X10'3 (4.5-11.0)
[2017-07-21] MEDS: diltiazem-NS 100mg/100ml 100 ML IV SCH (04:09)
[2017-07-21 04:13] LABS: ALANINE AMINOTRANSFERASE 29 U/L (12-78); ALBUMIN 1.3 G/DL (3.4-5.0); ALBUMIN/GLOBULIN RATIO 0.2 (1.1-1.5); ALKALINE PHOSPHATASE 95 IU/L (46-116); ANION GAP 17 (8-16); ASPARTATE AMINO TRANSFERASE 63 U/L (10-37); BILIRUBIN,TOTAL 1.6 MG/DL (0.1-1.0); BLOOD UREA NITROGEN 136 MG/DL (7-18); BUN/CREATININE RATIO 22.7 (5.4-32.0); CALCIUM 7.5 MG/DL (8.5-10.1); CHLORIDE 114 MMOL/L (99-107); MAGNESIUM 1.7 MG/DL (1.5-2.4); PHOSPHORUS 8.7 MG/DL (2.3-4.5); POTASSIUM 5.2 MMOL/L (3.5-5.1); SODIUM 146 MMOL/L (135-145); TOTAL PROTEIN 6.8 G/DL (6.4-8.2); eGFR 10 ML/MIN
[2017-07-21 04:14] LABS: HEMATOCRIT 21.5 % (42.0-52.0)
[2017-07-21 04:20] LABS: GLUCOSE 134 MG/DL (70-104)
[2017-07-21 04:21] LABS: TOTAL CARBON DIOXIDE 14.8 MMOL/L (24-32)
[2017-07-21 04:31] LABS: ABG BASE EXCESS -13.3 mmol/L (-2.0-3.0); ABG HCO3 14.2 mmol/L (22.0-26.0); ABG OXYGEN SATURATION 93.2 % (95-98); ABG PH (T) 7.162 (7.350-7.450); FCOHb 0.2 % (0.5-1.5); FMetHb 0.2 % (0.3-1.12); FO2Hb 92.8 % (94-100); MINUTE VOLUME 11 L/min; PATIENT TEMPERATURE 37.7; PEEP 5 cm H2O; RESPIRATORY RATE 22 b/min; RESPIRATORY RATE (OBSERVED) 25 b/min; TOTAL HEMOGLOBIN 7.7 G/dl (14.0-18.0)
[2017-07-21 04:37] LABS: TOTAL CELLS COUNTED 100
[2017-07-21 04:39] LABS: PLATELET ESTIMATE INCREASED
[2017-07-21 04:40] LABS: ANISOCYTOSIS 3+; ELLIPTOCYTES FEW; HYPOCHROMASIA 1+; MICROCYTOSIS 1+; POLYCHROMASIA 1+; TOXIC GRANULATION 2+
[2017-07-21] MEDS: metroNIDAZOLE-Flagyl 500mg/NS 100 ML IV SCH (07:31)
[2017-07-21] MEDS: fluconazole-Diflucan 200mg/NS 100 ML IV SCH (07:31)
[2017-07-21] MEDS: CefTRIAXone 2gm/D5W 50ml 50 ML IV SCH (07:32)
[2017-07-21] MEDS: digoxin 250mcg/ml 2ml ampule IV SCH (07:35)
[2017-07-21] MEDS: pantoprazole 40 MG vial IV SCH (07:48)
[2017-07-21] MEDS: enoxaparin 30mg/0.3ml syringe SUBCUT SCH (07:48)
[2017-07-21] MEDS: aspirin 325mg tablet, delayed-release (Ecotrin) PO SCH (07:54)
[2017-07-21] MEDS: potassium Cl oral solution 20 MEQ/15 ML PO SCH (07:55)
[2017-07-21] MEDS: atorvastatin 20mg tablet PO SCH (07:55)
[2017-07-21] MEDS: LIRAGLUTIDE 0.6 MG SQ SCH (07:55)
[2017-07-21] MEDS: gabapentin 300mg capsule PO SCH (07:55)
[2017-07-21] MEDS: FENTANYL-0.9 % NACL/PF 100 ML IV PRN (08:12)
[2017-07-21] MEDS: levoTHYROXINE sod inj. 100mcg/5 ml vial IV SCH (08:47)
[2017-07-21] MEDS ORDERED: sodium bicarbonate (8.4%) 1 mEq/ml syringe IV ONE (09:35)
[2017-07-21] MEDS: NOREPINEPHRINE IV SCH (09:52)
[2017-07-21] MEDS: NORMAL SALINE IV SCH (09:52)
== END 2017-07-21 14:22 | disposition expired | DRG 335 ==
LOC: PAS 06:03 → CICU 2S 11:30
PROVIDERS: ADMIT Surgery; ATTEND Surgery
PROC: 0DNW0ZZ Release Peritoneum, Open Approach (ICD-10-PCS; 2017-07-08)
PROC: 0WJF4ZZ Inspection of Abdominal Wall, Percutaneous Endoscopic Approach (ICD-10-PCS; 2017-07-08)
PROC: 0WUF0JZ Supplement Abdominal Wall with Synthetic Substitute, Open Approach (ICD-10-PCS; principal; 2017-07-08 09:30)
PROC: 5A1955Z Respiratory Ventilation, Greater than 96 Consecutive Hours (ICD-10-PCS; 2017-07-11)
PROC: 0WPF0JZ Removal of Synthetic Substitute from Abdominal Wall, Open Approach (ICD-10-PCS; 2017-07-11)
PROC: 5A12012 Performance of Cardiac Output, Single, Manual (ICD-10-PCS; 2017-07-11)
PROC: 0J9800Z Drainage of Abdomen Subcutaneous Tissue and Fascia with Drainage Device, Open Approach (ICD-10-PCS; 2017-07-11)
PROC: 30233N1 Transfusion of Nonautologous Red Blood Cells into Peripheral Vein, Percutaneous Approach (ICD-10-PCS; 2017-07-11)
PROC: 03HY32Z Insertion of Monitoring Device into Upper Artery, Percutaneous Approach (ICD-10-PCS; 2017-07-11)
PROC: 0WCG0ZZ Extirpation of Matter from Peritoneal Cavity, Open Approach (ICD-10-PCS; 2017-07-11)
PROC: 02HV33Z Insertion of Infusion Device into Superior Vena Cava, Percutaneous Approach (ICD-10-PCS; 2017-07-11)
PROC: B548ZZA Ultrasonography of Superior Vena Cava, Guidance (ICD-10-PCS; 2017-07-11)
PROC: 30233N1 Transfusion of Nonautologous Red Blood Cells into Peripheral Vein, Percutaneous Approach (ICD-10-PCS; 2017-07-13)
PROC: 04HY32Z Insertion of Monitoring Device into Lower Artery, Percutaneous Approach (ICD-10-PCS; 2017-07-14)
PROC: 30233N1 Transfusion of Nonautologous Red Blood Cells into Peripheral Vein, Percutaneous Approach (ICD-10-PCS; 2017-07-15)
DX: K43.2 Incisional hernia without obstruction or gangrene (principal); A41.9 Sepsis, unspecified organism; J96.00 Acute respiratory failure, unspecified whether with hypoxia or hypercapnia; R57.0 Cardiogenic shock; R65.21 Severe sepsis with septic shock; K65.1 Peritoneal abscess; I47.2 Ventricular tachycardia; K63.2 Fistula of intestine; I50.9 Heart failure, unspecified; I42.9 Cardiomyopathy, unspecified; N17.9 Acute kidney failure, unspecified; E87.0 Hyperosmolality and hypernatremia; Z68.43 Body mass index [BMI] 50.0-59.9, adult; S36.92XA Contusion of unspecified intra-abdominal organ, initial encounter; I49.01 Ventricular fibrillation; E66.01 Morbid (severe) obesity due to excess calories; I11.0 Hypertensive heart disease with heart failure; J44.9 Chronic obstructive pulmonary disease, unspecified; G47.33 Obstructive sleep apnea (adult) (pediatric); E03.9 Hypothyroidism, unspecified; E11.9 Type 2 diabetes mellitus without complications; E78.5 Hyperlipidemia, unspecified; I25.10 Atherosclerotic heart disease of native coronary artery without angina pectoris; I48.2 Chronic atrial fibrillation; K21.9 Gastro-esophageal reflux disease without esophagitis; K66.0 Peritoneal adhesions (postprocedural) (postinfection); Z51.5 Encounter for palliative care; Z66 Do not resuscitate; Z95.2 Presence of prosthetic heart valve; Z95.810 Presence of automatic (implantable) cardiac defibrillator; Z90.49 Acquired absence of other specified parts of digestive tract; Z91.018 Allergy to other foods; Z79.899 Other long term (current) drug therapy; Z79.82 Long term (current) use of aspirin; Z79.4 Long term (current) use of insulin; Y93.89 Activity, other specified; Y99.8 Other external cause status
CPT/HCPCS: 36415; 36600; 71045; 71250; 74176; 76604; 80048; 80053; 80162; 81001; 82140; 82330; 82803; 82810; 82948; 83036; 83605; 83735; 83880; 84100; 84132; 84134; 84145; 84478; 84484; 84560; 85018; 85025; 85027; 85610; 85730; 86885; 86900; 86901; 86920; 87040; 87070; 87075; 87077; 87102; 87186; 88302; 93005; 93308; 94002; 94003; 94640; 94760; 97110; 97161; 97530; A4421; A4649; A6212; A6213; A6222; A6253; A6255; A6257; A6258; A6449; A7000; A7015; C1758; C1781; C1894; C9113; J0131; J0153; J0171; J0282; J0330; J0610; J0690; J0696; J1160; J1170; J1250; J1450; J1580; J1650; J1815; J1885; J1940; J2001; J2060; J2185; J2212; J2250; J2405; J2543; J2704; J2710; J2765; J3010; J3480; J3490; J7030; J7060; J7070; J7120; J7131; P9016; P9045; P9047; Q0169